=== PATIENT | female | born 1970 | race Caucasian/White ===

== ENCOUNTER 2019-11-02 07:47 | Outpatient (CLI) | payer OTHER, SELFPAY ==
--- NOTE | 2019-11-02 07:56 | MM_ITS ---
WS: [id number] BILATERAL SCREENING DIGITAL MAMMOGRAM WITH CAD HISTORY: SCREENING COMPARISON: 10/29/2018, 08/08/2017, 07/06/2016, 06/09/2015 and 12/14/2014 Bilateral CC and MLO views submitted. Computer aided detection analyzed. Breast composition: There are scattered areas of fibroglandular density. No suspicious masses, microc alcifications or architectural distortion. Long-term stability of calcifications in the central LEFT breast. There is an asymmetry in the anterior LEFT breast associated with the calcifications which valdez s been present over multiple prior examinations and stable. MM/[place] [id number] IMPRESSION: BI-RADS: 2-Benign FOLLOW UP: 1 Year Follow-up
== END 2019-11-02 07:48 | disposition home or self-care (01) ==
LOC: RADSHAW 07:51
PROVIDERS: PCP Nurse Practitioner Family; Visit Provider Obstetrics & Gynecology
DX: Z12.31 Encounter for screening mammogram for malignant neoplasm of breast (principal)
CPT/HCPCS: 77067

== ENCOUNTER 2020-09-06 16:37 | Outpatient (CLI) | payer OTHER, SELFPAY ==
--- NOTE | 2020-09-06 16:47 | MR_ITS ---
WS: [id number] MRI LEFT KNEE NONCONTRAST TECHNIQUE: Axial PD, coronal PD fat sat, coronal PD, sagittal PD, and sagittal PD fat-sat images obta ined. CLINICAL INFORMATION: LEFT KNEE PAIN COMPARISON: None. FINDINGS: Distal quadriceps and patella tendons are intact. Hypertrophic patella. Normal ACL and PCL. Hoffa's f at pad is normal in appearance. Chronic thinning of the medial and lateral meniscus. Blunting of the posterior horn medial meniscus with a small horizontal tear extending to the periphery. Mild lateral extrusion of the medial meniscus. Moderate degenerative narrowing involving the medial and lateral joint compartments with chondromalac ia. Advanced chondromalacia patella. Small amount of subchondral edema. Medial and lateral patellar r etinaculum are intact. Normal popliteal fossa. Small amount of edema and fluid along the superficial and deep fibers of the MCL. MCL appears grossly intact. Findings compatible with grade 1-2 injury. No rmal lateral collateral ligament. MR/MR knee LT wo con* [id number] IMPRESSION: 1. Normal ACL and PCL. 2. Grade IV chondromalacia patella with a small amount of subchondral edema. 3. Advanced degenerative narrowing medial and lateral joint compartments with grade 3-4 chondromalacia. 4. Grade 1-2 injury medial collateral ligament which appears grossly intact. 5. Small horizontal tear involving the posterior horn medial meniscus extendin g to the periphery. Outbridge grading: grade IV: full-thickness cartilage loss with underlying bone reactive changes
== END 2020-09-06 16:38 | disposition home or self-care (01) ==
LOC: RADSHAW 16:39
PROVIDERS: PCP Nurse Practitioner Family; Visit Provider Nurse Practitioner Family
DX: M25.562 Pain in left knee (principal); S83.242A Other tear of medial meniscus, current injury, left knee, initial encounter; X58.XXXA Exposure to other specified factors, initial encounter
CPT/HCPCS: 73721

== ENCOUNTER → 2020-09-19 10:07 | Outpatient (BNVA) | payer OTHER, SELFPAY | PROVIDERS: PCP Nurse Practitioner Family; Visit Provider Specialist | DX: M17.12 Unilateral primary osteoarthritis, left knee (principal); S83.249A Other tear of medial meniscus, current injury, unspecified knee, initial encounter; X58.XXXA Exposure to other specified factors, initial encounter | CPT/HCPCS: 73560; 73565 ==

== ENCOUNTER 2020-09-28 14:30 | Outpatient (RCR) | payer OTHER, SELFPAY | END 2020-10-05 23:59 | disposition home or self-care (01) | LOC: SPT 14:30 | PROVIDERS: PCP Nurse Practitioner Family; Referring Provider Specialist; Visit Provider Specialist | DX: M17.12 Unilateral primary osteoarthritis, left knee (principal) | CPT/HCPCS: 97110; 97161 ==

== ENCOUNTER 2020-10-06 06:00 | Outpatient (RCR) | payer OTHER, SELFPAY | END 2020-11-05 23:59 | disposition home or self-care (01) | LOC: SPT 06:00 | PROVIDERS: PCP Nurse Practitioner Family; Referring Provider Specialist; Visit Provider Specialist | DX: S46.911A Strain of unspecified muscle, fascia and tendon at shoulder and upper arm level, right arm, initial encounter (principal); X58.XXXA Exposure to other specified factors, initial encounter | CPT/HCPCS: 97110 ==

== ENCOUNTER 2020-11-06 06:00 | Outpatient (RCR) | payer OTHER, SELFPAY | END 2020-12-06 23:59 | disposition home or self-care (01) | LOC: SPT 06:00 | PROVIDERS: PCP Nurse Practitioner Family; Referring Provider Specialist; Visit Provider Specialist | DX: M17.12 Unilateral primary osteoarthritis, left knee (principal) | CPT/HCPCS: 97110; G0283 ==

== ENCOUNTER 2020-11-07 14:43 | Outpatient (CLI) | payer OTHER, SELFPAY ==
--- NOTE | 2020-11-07 14:47 | MM_ITS ---
WS: [id number] BILATERAL SCREENING DIGITAL MAMMOGRAM WITH CAD HISTORY: SCREENING COMPARISON: 11/02/2019, 10/29/2018, 12/14/2014, 06/09/2015 and 06/29/2016 Bilateral CC and MLO views submitted. Computer aided detection analyzed. Breast composition: There are scattered areas of fibroglandular density. No suspicious masses, microc alcifications or architectural distortion. There are scattered nodules and calcifications which remai n stable over multiple prior examinations. No new or increasing calcifications. MM/[place] [id number] IMPRESSION: BI-RADS: 2-Benign FOLLOW UP: 1 Year Follow-up
== END 2020-11-07 14:44 | disposition home or self-care (01) ==
LOC: RADSHAW 14:46
PROVIDERS: PCP Nurse Practitioner Family; Visit Provider Nurse Practitioner Family
DX: Z12.31 Encounter for screening mammogram for malignant neoplasm of breast (principal)
CPT/HCPCS: 77067

== ENCOUNTER → 2020-11-30 09:20 | Outpatient (BNVA) | payer OTHER, SELFPAY | PROVIDERS: PCP Nurse Practitioner Family; Visit Provider Specialist | DX: M17.12 Unilateral primary osteoarthritis, left knee (principal) | CPT/HCPCS: 80500; 87070; 87205; 89051 ==

== ENCOUNTER 2020-12-05 09:49 | Outpatient (CLI) | payer OTHER, SELFPAY ==
[2020-12-05 10:42] LABS: Alanine Aminotransferase 18 U/L (0-33); Albumin Level 4.2 g/dL (3.5-5.2); Alkaline Phosphatase 87 IU/L (35-105); Anion Gap 13.8 (5-19); Aspartate Amino Transferase 16 U/L (0-32); Blood Urea Nitrogen 12 mg/dL (6-20); C Reactive Protein 20.9 mg/L (0.0-4.9); Calcium 9.4 mg/dL (8.5-10.5); Carbon Dioxide 27 mmol/L (22-29); Chloride 98 mmol/L (98-107); Globulin 3.4 g/dL (1.3-4.6); Glomerular Filtration Rate 105.4 mL/min (90-130); Glucose 112 mg/dL (65-115); Osmolality Calculated 281 mOsm/kg (285-295); Potassium 3.8 mmol/L (3.5-5.1); Sodium 135 mmol/L (136-145); Total Bilirubin 0.5 mg/dL (0.15-1.2); Total Protein 7.6 g/dL (6.6-8.7)
[2020-12-05 11:24] LABS: Erythrocyte Sedimentation Rate 28 mm/hr (0-15)
[2020-12-06 11:32] LABS: COMPLEMENT COMPONENT C3C 196 mg/dL (83-193); COMPLEMENT COMPONENT C4C 45 mg/dL (15-57)
[2020-12-07 09:52] LABS: Cyclic Citrullinated Peptide <16 UNITS
[2020-12-07 14:26] LABS: CENTROMERE B ANTIBODY <1.0 NEG AI (<1.0 NEG); JO-1 ANTIBODY <1.0 NEG AI (<1.0 NEG); RNP ANTIBODY <1.0 NEG AI (<1.0 NEG); SCL-70 ANTIBODY <1.0 NEG AI (<1.0 NEG); SJOGREN'S ANTIBODY (SS-A) <1.0 NEG AI (<1.0 NEG); SM ANTIBODY <1.0 NEG AI (<1.0 NEG); SS-B <1.0 NEG AI (<1.0 NEG)
[2020-12-07 14:42] LABS: COMPLEMENT, TOTAL (CH50) >60 U/mL (31-60)
[2020-12-07 15:41] LABS: THYROID PEROXIDASE ANTIBODIES 2 IU/mL (<9)
[2020-12-08 16:42] LABS: ANA SCREEN, IFA NEGATIVE (NEGATIVE)
[2020-12-09 12:22] LABS: DNA AB (DS) CRITHIDIA,IFA NEGATIVE (NEGATIVE)
== END 2020-12-05 09:50 | disposition home or self-care (01) ==
PROVIDERS: PCP Nurse Practitioner Family; Visit Provider Specialist
DX: M17.12 Unilateral primary osteoarthritis, left knee (principal)
CPT/HCPCS: 36415; 80053; 85651; 86140; 86160; 86162; 86235; 86255; 86376; 86431

== ENCOUNTER 2021-01-09 07:22 | Emergency (ER) | payer OTHER, SELFPAY ==
[2021-01-09 07:32] VITALS: BP 137/98; PULSE 89; RESP 19; TEMP 37.1; O2SAT 96; BMI 35.0
--- NOTE | 2021-01-09 07:40 | XR_ITS ---
WS: [id number] XR chest 1V portable [id number] REASON FOR EXAM: dyspnea/cough FINDINGS: The chest is unchanged compared to 12/01/2014. The heart and mediastinum are within normal limits. Calcified granulomatous disease bilaterally. Chronic interstitial changes, fibrotic scarring, in the lung bases, most notably on the right. XR/XR chest 1V portable [id number] IMPRESSION: No acute chest abnormality identified.
--- NOTE | 2021-01-09 07:41 | ED_ITS ---
HPI - COVID General: Chief Complaint: COVID symptoms Stated Complaint: covid sx: loss of taste/smell; SOB Time Seen by Provider: 01/09/21 07:24 Triage information: No fever, cough or shortness of breath . Exposure to COVID + person last 14 days History of Present Illness: HPI Narrative: 80-year-old female presents emergency room complaining of anosmia low-grade fever. 53 1 week ago. Patient has a history of hypertension and obesity, she is also on postmenopausal hormone replacement therapy. She has had a few loose stools no nancy diarrhea. She has not previously been vaccinated or known to have Covid. MD complaint: has COVID symptoms Prior covid testing: no COVID 19 common symptoms: positive fever(s), chills, cough, non-productive cough, dyspnea, fatigue, body aches, loss of sense of smell and/or taste, throat pain, nasal congestion, nausea, vomiting and diarrhea; negative productive cough, headache(s) or chest tightness COVID 19 other sytmptoms: negative chest pain or requiring oxygen Onset (ago): day(s) (7) Severity: mild Pertinent comorbid conditions: hypertension and obesity Treatment prior to arrival: none COVID Results: No Data to Display Review of Systems Const: Reports: fever(s), chills, body aches and fatigue ENMT: Reports: throat pain and nasal congestion Card: Denies: chest pain, edema, dyspnea on exertion or orthopnea Resp: Reports: dyspnea and non-productive cough; Denies: productive cough GI: Reports: nausea, vomiting and diarrhea : Denies: flank pain, difficulty voiding, dysuria, urinary frequency or urinary urgency Skin/Breast: Denies: rash or pruritus Neuro: Denies: headache(s) PFSH ED PFSH: Family History Father Hypertension Heart disease Hyperlipidemia Diabetes Grandmother Heart disease paternal Breast cancer maternal Mother Cerebral aneurysm Grandfather Brain cancer paternal Denies family history of Colon cancer Ovarian cancer Clotting disorder Anesthesia complication Bleeding disorder Uterine cancer Thyroid condition Stroke Social History Smoking and tobacco status: never smoked Alcohol intake: current Alcohol intake frequency: holidays/special occasions only Alcohol type: wine Physical Exam Const: COMMON NORMALS: no acute distress GENERAL APPEARANCE: cooperative and comfortable ORIENTATION/CONSCIOUSNESS: Yes awake, Yes oriented to person, Yes oriented to place and Yes oriented to time HENMT: COMMON NORMALS: normocephalic, atraumatic and hearing grossly normal bilaterally HEAD & SCALP: normocephalic and atraumatic Neck/C-Spine: COMMON NORMALS: no JVD Resp: COMMON NORMALS: normal respiratory effort, No retractions, No use of accessory muscles and clear to auscultation bilaterally AUSCULTATION: clear to auscultation bilaterally Cardio: COMMON NORMALS: no JVD, regular rate, regular rhythm and No murmurs present (Cardio) RATE: regular rate RHYTHM: regular rhythm GI: COMMON NORMALS: Soft to palpation and No hepatosplenomegaly present AUSCULTATION: Yes normoactive bowel sounds PALPATION: Yes Soft to palpation, No Tenderness to palpation present (GI), No Guarding due to palpation present (GI) and Yes No hepatosplenomegaly present Extremity: COMMON NORMALS: normal to inspection, capillary refill normal, no clubbing, cyanosis or edema, no calf tenderness and no pedal edema Neuro: SENSORIUM/ORIENTATION: Yes oriented to person, Yes oriented to place and Yes oriented to time Skin: COMMON NORMALS: no rashes or lesions noted GENERAL SKIN EXAM: no rashes or lesions noted Course Vital Signs: Vital signs: Vital Signs Temperature 98.7 F 01/09/21 07:32 Pulse Rate 87 01/09/21 08:02 Respiratory Rate 16 01/09/21 08:02 Blood Pressure 128/90 01/09/21 08:02 Pulse Oximetry 96 01/09/21 08:02 MDM - COVID MDM Narrative: Medical decision making narrative: Patient has mild symptoms. I do suspect she has Covid. Discussed monoclonal antibody she does wish to proceed with this if she is positive. She would meet criteria in terms of timeframe and medical indications. We will go ahead and discharge her home she is not requiring oxygen at this time recommend self quarantine. Concerned about conjugated estrogens. Covid patients have an increased risk for thrombosis. If still taken the conjugated estrogens would anticipate an even higher potential for that if she is positive for Covid. I would recommend to her that she hold conjugated estrogens until her primary care doctor advised that she can return restart them if she is positive for Covid. COVID Results: No Data to Display Discharge Plan Discharge Patient Disposition: Home Clinical Impression: Clinical diagnosis of COVID-19 Condition: Stable Prescriptions: No Action lisinopril-hydrochlorothiazide 10-12.5 mg tablet 1 tab PO DAILY RF: 0 bupropion HCl [Wellbutrin XL] 150 mg tablet extended release 24 hr 150 mg PO QAM RF: 0 albuterol sulfate [Ventolin HFA] 90 mcg/actuation HFA aerosol inhaler 2 puff INHALATION Q6H PRN (Reason: shortness of breath or wheezing) Qty: 18 RF: 0 calcium carbonate-vitamin D2 600 mg calcium- 200 unit tablet PO DAILY RF: 0 multivitamin Tablet 1 tab PO DAILY RF: 0 docusate sodium [Colace] 100 mg capsule 100 mg PO DAILY RF: 0 Premarin 0.9 mg tablet 0.9 mg PO DAILY 90 Days Qty: 90 RF: 3 meloxicam [Mobic] 15 mg tablet 15 mg PO DAILY Qty: 30 RF: 0 Discharge Orders: Discharge ED (Routine); Ordered 01/09/21 Ordered By: Master Esteban Referrals: Susanna Callaway APN [Primary Care Provider] - Discharge Diet: Usual diet Discharge Activity: Resume usual activity Patient Instructions: Opioid Safety Activity Restrictions/Additional Instructions: Suspect you have Covid. We will contact you with results when they are available. Recommend that you stop the conjugated estrogens at this time follow-up with your primary care doctor if the results are positive to discuss when to resume them. Also recommend self quarantine until results are back. If the results are positive would recommend monoclonal antibody treatment which can be arranged as an outpatient. 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
[2021-01-09 08:02] VITALS: BP 128/90; PULSE 87; RESP 16; O2SAT 96
[2021-01-09 08:32] LABS: SARS Covid-2 Antigen Negative (Negative)
[2021-01-10 20:06] LABS: Coronavirus Test Green County Detected
== END 2021-01-09 08:20 | disposition home or self-care (01) ==
PROVIDERS: Emergency Provider Family Medicine; PCP Nurse Practitioner Family
DX: U07.1 COVID-19 (principal)
CPT/HCPCS: 71045; 87426; 87635; 99283

== ENCOUNTER 2021-01-11 13:23 | Outpatient (CLI) | payer OTHER, SELFPAY ==
[2021-01-11 14:03] VITALS: BMI 34.3
[2021-01-11 14:10] VITALS: BP 128/81; PULSE 81; RESP 18; TEMP 36.5; O2SAT 95
[2021-01-11 14:22] VITALS: BP 108/74; PULSE 71; RESP 18; O2SAT 97
[2021-01-11 15:13] VITALS: BP 108/76; PULSE 88; RESP 18; TEMP 36.9; O2SAT 97
== END 2021-01-11 13:24 | disposition home or self-care (01) ==
PROVIDERS: PCP Nurse Practitioner Family; Visit Provider Family Medicine
DX: U07.1 COVID-19 (principal)
CPT/HCPCS: 96365

== ENCOUNTER → 2021-02-01 08:31 | Outpatient (BNVA) | payer OTHER, SELFPAY | PROVIDERS: PCP Nurse Practitioner Family; Visit Provider Internal Medicine | DX: M25.562 Pain in left knee (principal); M25.462 Effusion, left knee; R79.82 Elevated C-reactive protein (CRP); Z11.59 Encounter for screening for other viral diseases; R93.7 Abnormal findings on diagnostic imaging of other parts of musculoskeletal system; Z79.899 Other long term (current) drug therapy | CPT/HCPCS: 99204 ==

== ENCOUNTER 2021-02-01 13:35 | Outpatient (CLI) | payer OTHER, SELFPAY ==
--- NOTE | 2021-02-01 14:01 | XR_ITS ---
WS: [id number] Exam: XR hand RT 2V [id number] Date/Time of Exam: 02/01/2021 2:03 PM Reason For Exam: M25.562 - Pain in left knee Findings: No fractures, soft tissue swelling, or unusual calcifications are noted. The hand shows normal bony alignment. There is no irregularity of the bony architecture. XR/XR hand RT 2V [id number] IMPRESSION: Normal right hand.
--- NOTE | 2021-02-01 14:01 | XR_ITS ---
WS: [id number] SACROILIAC JOINTS TECHNIQUE: AP and oblique imaging is submitted. HISTORY: L40.9 - Psoriasis, unspecified COMPARISON: None available. No significant sclerosis along either SI joint. Questionable minimal LEFT SI sclerosis. There is no w idening or erosions identified. No enthesopathy is identified. No soft tissue abnormality. XR/XR sacroiliac jts m 3V [id number] IMPRESSION: Very minimal sclerosis along the inferior LEFT SI joint. This is asymmetric to the RIGHT. No erosions or widening.
--- NOTE | 2021-02-01 14:01 | XR_ITS ---
WS: [id number] Exam: XR hand LT 2V [id number] Date/Time of Exam: 02/01/2021 2:03 PM Reason For Exam: M25.562 - Pain in left knee Findings: No fractures, soft tissue swelling, or unusual calcifications are noted. The hand shows normal bony alignment. There is no irregularity of the bony architecture. XR/XR hand LT 2V [id number] IMPRESSION: Normal left hand.
[2021-02-01 15:16] LABS: Add Urine Microscopic? NO; Charge for UA Resulting for Rev
[2021-02-01 15:25] LABS: Basophils # 0.1 10^3/uL (0.0-0.1); Basophils % 0.7 %; Eosinophils # 0.2 10^3/uL (0.0-0.8); Eosinophils % 2.4 %; Hematocrit 43.7 % (37.0-47.0); Hemoglobin 14.2 g/dL (11.5-15.3); Lymphocytes # 2.7 10^3/uL (0.8-4.8); Lymphocytes % 28.3 %; Mean Corpuscular HGB Conc 32.5 g/dL (30.0-36.0); Mean Corpuscular Hemoglobin 29.3 pg (28.0-34.0); Mean Corpuscular Volume 90.1 fl (81-99); Mean Platelet Volume 11.2 fL (7.4-10.4); Monocytes # 0.8 10^3/uL (0.2-0.9); Monocytes % 8.9 %; Neutrophils # 5.57 10^3/uL (1.8-7.7); Neutrophils % 59.3 %; Nucleated Red Blood Cells % 0 %; Platelet Count 326 10^3/cmm (130-400); Red Blood Count 4.85 10^6/uL (4.1-5.3); Red Cell Distribution Width 12.6 % (12.1-15.1); White Blood Count 9.4 10^3/uL (4.0-10.0)
[2021-02-01 16:09] LABS: Hepatitis B Core AB, Total Non-Reactive (Nonreactive); Hepatitis B Surface Antigen Non-Reactive (Nonreactive); Hepatitis C Virus Antibody Non-Reactive (Nonreactive)
[2021-02-01 16:11] LABS: 25 Hydroxy Vitamin D 30 ng/mL (30-100); C Reactive Protein 20.1 mg/L (0.0-4.9); Ferritin 116 ng/mL (15-150); Iron 60 ug/dL (37-145); Phosphorus 3.8 mg/dL (2.5-4.5); Thyroid Stimulating Hormone 0.99 uIU/mL (0.27-4.20); Uric Acid 6.4 mg/dL (2.4-5.7)
[2021-02-01 16:25] LABS: Bilirubin Urine Neg (Negative); Blood Urine Neg (Negative); Glucose Urine UA Norm (Normal); Ketones Urine Negative (Negative); Leukocyte Esterase Urine Negative (Negative); Nitrate Urine Negative (Negative); Protein Urine Neg (Negative); Specific Gravity, Urine 1.015 (1.005-1.030); Urine Appearance Clear (CLEAR); Urine Color Yellow (Yellow); Urobilinogen Urine Norm (Negative); pH Urine 7 (5-7)
[2021-02-01 16:27] LABS: Calcium 9.7 mg/dL (8.5-10.5)
[2021-02-01 17:16] LABS: Parathyroid Hormone 33.5 pg/mL (15-65)
[2021-02-02 14:48] LABS: Erythrocyte Sedimentation Rate 36 mm/hr (0-15)
== END 2021-02-01 13:36 | disposition home or self-care (01) ==
PROVIDERS: PCP Nurse Practitioner Family; Visit Provider Internal Medicine
DX: M25.562 Pain in left knee (principal); L40.9 Psoriasis, unspecified; Z79.899 Other long term (current) drug therapy; Z11.59 Encounter for screening for other viral diseases
CPT/HCPCS: 36415; 72202; 73120; 81003; 82306; 82310; 82728; 83540; 83735; 83970; 84100; 84439; 84443; 84550; 85025; 85651; 86140; 86704; 86803; 87340

== ENCOUNTER → 2021-02-13 09:29 | Outpatient (BNVA) | payer OTHER, SELFPAY | PROVIDERS: PCP Nurse Practitioner Family; Visit Provider Internal Medicine | DX: M23.204 Derangement of unspecified medial meniscus due to old tear or injury, left knee (principal); M25.462 Effusion, left knee; R79.82 Elevated C-reactive protein (CRP); M53.3 Sacrococcygeal disorders, not elsewhere classified; M70.60 Trochanteric bursitis, unspecified hip; Y93.9 Activity, unspecified; M45.0 Ankylosing spondylitis of multiple sites in spine | CPT/HCPCS: 86812; 99214 ==

== ENCOUNTER → 2021-02-22 11:21 | Outpatient (BNVA) | payer OTHER, SELFPAY | PROVIDERS: PCP Nurse Practitioner Family; Visit Provider Internal Medicine | DX: M17.12 Unilateral primary osteoarthritis, left knee (principal) | CPT/HCPCS: 96372; J1100 ==

== ENCOUNTER 2021-03-10 13:13 | Outpatient (CLI) | payer OTHER, SELFPAY ==
--- NOTE | 2021-03-10 13:19 | XR_ITS ---
WS: [id number] Lumbar spine, 3 views, 03/10/2021 Clinical Data: M53.3 - Sacrococcygeal disorders, not elsewhere classified Comparison: None. Findings: No compression fractures or subluxation is seen. No disc space narrowing is seen. The transverse proc esses and SI joints are normal. There is minimal osteoarthritic spurring of the lumbar vertebral bodies L2-L5. There are clips in the right upper quadrant from a cholecystectomy. XR/XR lumbar spine 2-3V* [id number] Impression: Minimal osteoarthritis L2-L5.
--- NOTE | 2021-03-10 13:19 | XR_ITS ---
WS: [id number] Lateral views of cervical spine in the flexion, extension and neutral positions. 03/10/2021 Clinical Data: M53.3 - Sacrococcygeal disorders, not elsewhere classified Comparison: Cervical spine, 04/13/2011. Findings: No compression fractures are seen. The disc heights are normal. On flexion and extension there is no limitation of motion or subluxation. There is no prevertebral soft tissue swelling. XR/XR cervical spine fl/ex [id number] Impression: Negative lateral cervical spine.
--- NOTE | 2021-03-10 13:19 | XR_ITS ---
WS: [id number] Thoracic spine, 3 views, 03/10/2021 Clinical Data: M53.3 - Sacrococcygeal disorders, not elsewhere classified Comparison: None. Findings: No compression fractures are seen. The disc heights are normal. There is moderate spurring of all the thoracic vertebral bodies. The paravertebral regions are normal . There are clips in the right upper quadrant from cholecystectomy. XR/XR thoracic spine 3V* [id number] Impression: Moderate osteoarthritis of the thoracic vertebral bodies.
[2021-03-11 08:22] LABS: PROTEIN, TOTAL 7.4 g/dL (6.1-8.1)
[2021-03-13 15:57] LABS: ALBUMIN 4.3 g/dL (3.8-4.8); ALPHA 1 GLOBULIN 0.4 g/dL (0.2-0.3); ALPHA 2 GLOBULIN 0.8 g/dL (0.5-0.9); BETA 1 GLOBULIN 0.5 g/dL (0.4-0.6); BETA 2 GLOBULIN 0.4 g/dL (0.2-0.5); GAMMA GLOBULIN 1.1 g/dL (0.8-1.7)
== END 2021-03-10 13:14 | disposition home or self-care (01) ==
LOC: RAD 13:17
PROVIDERS: PCP Nurse Practitioner Family; Visit Provider Internal Medicine
DX: M53.3 Sacrococcygeal disorders, not elsewhere classified (principal); M70.60 Trochanteric bursitis, unspecified hip; R76.8 Other specified abnormal immunological findings in serum; Z87.828 Personal history of other (healed) physical injury and trauma
CPT/HCPCS: 36415; 72040; 72072; 72100; 84155; 84165

== ENCOUNTER → 2021-06-12 15:43 | Outpatient (BNVA) | payer OTHER, SELFPAY | PROVIDERS: PCP Nurse Practitioner Family; Visit Provider Specialist | DX: M17.12 Unilateral primary osteoarthritis, left knee (principal); Z20.822 Contact with and (suspected) exposure to COVID-19 | CPT/HCPCS: 73560; 73565; 87635 ==

== ENCOUNTER 2021-06-15 11:01 | Day surgery (SDC) | payer OTHER, SELFPAY ==
[2021-06-14 10:42] VITALS: BMI 35.5
[2021-06-15] VITALS (10 sets, daily range): BP systolic 92–134; BP diastolic 53–88; PULSE 64–94; RESP 14–18; TEMP 36.3–36.7; O2SAT 94–98
[2021-06-15] MEDS: acetaminophen 1,000 MG/100 ML PIGGYBACK 400 MG IV (12:05)
[2021-06-15] MEDS: sodium chloride 0.9% 1,000 ML 30 ML IV (12:09)
[2021-06-15] MEDS: CELEcoxib 200 mg Capsule 400 MG PO (12:10)
--- NOTE | 2021-06-15 12:10 | P.HPUD_ITS ---
Surgery/Procedure H&P Update DATE OF PROCEDURE: June 15, 2021 DATE H&P PERFORMED: 06/12/21 H&P UPDATE INFORMATION: I have reviewed H&P completed within last 30 days, I have examined patient prior to procedure, No changes to prior documentation and H&P is in [facility] [place] on date indicated PREOP DIAGNOSIS: Left knee effusion with synovitis, osteoarthritis, and meniscal tear PLANNED PROCEDURE: Operation Date: 06/15/21 12:30 Proposed Procedures p Knee Arthroscopy 73937/88805I/s83.207A/M13.162(Left) - Angi Wong MD Related Problem List Diagnoses (1) Knee effusion, left: (2) Primary osteoarthritis of left knee: (3) Medial meniscus tear: Qualifiers: Tear current or old: old Meniscus tear of knee type: other type Laterality: left Qualified Code(s): M23.204 - Derangement of unspecified medial meniscus due to old tear or injury, left knee
[2021-06-15] MEDS: scopolamine 1.5 Patch 1 PATCH TRANSDERMA (12:25)
--- NOTE | 2021-06-15 12:32 | ANES.PREANE2 ---
Pre-Anesthetic Assessment Height/Weight: Height 1.63 m Weight 93.894 kg Temp Pulse Resp BP Pulse Ox 98.0 F 76 16 130/86 95 06/15/21 11:29 06/15/21 11:29 06/15/21 11:29 06/15/21 11:29 06/15/21 11:29 Preop Diagnosis: Left knee effusion with synovitis, osteoarthritis, and meniscal tear Operation Date: 06/15/21 12:30 Proposed Procedures p Knee Arthroscopy 28547/19692C/s83.207A/M13.162(Left) - Angi Wong MD Familial anesthetic complications: None Was Beta Anthony taken within 24 hours: N/A Was Clonidine taken within 24 hours: N/A Last intake: Intake Last Liquid Date 06/15/21 Last Liquid Time 06:30 Last Solid Date 06/14/21 Last Solid Time 21:00 Social No alcohol and No tobacco Exam alert, oriented x 3, clear to auscultation bilaterally and regular rate & rhythm Airway Submandibular: within normal limits Cervical ROM: within normal limits Mallampati: Class II Dentition: false CV/HEM Hypertension Metabolic Morbid Obesity Neuropsych Anxiety and Depression Anesthetic Plan ASA status: 2 Other: h/o PONV--TIVA Risk of > 500 ml blood loss (7ml/kg in children): No Medications/Allergies Home Medications Medication Instructions Recorded Confirmed Last Taken Type albuterol sulfate 90 mcg/actuation 2 puff INHALATION Q6H PRN #18 gm 05/14/19 06/15/21 01/11/21 Rx aerosol inhaler (Ventolin HFA) bupropion HCl 150 mg 24 hr tablet, 150 mg PO QAM 05/14/19 06/15/21 06/15/21 06:30 History extended release (Wellbutrin XL) lisinopril 10 1 tab PO DAILY 05/14/19 06/15/21 06/14/21 08:00 History mg-hydrochlorothiazide 12.5 mg tablet calcium carb-ergocalciferol (vit 1 tab PO DAILY tab 03/08/20 06/15/21 06/14/21 History D2) 600 mg calcium-200 unit tablet docusate sodium 100 mg capsule 100 mg PO DAILY 03/08/20 06/15/21 06/14/21 History (Colace) multivitamin 1 tab PO DAILY 03/08/20 06/15/21 06/14/21 History diclofenac sodium 1 % topical gel 4 g TOPICAL QID #100 g 02/01/21 06/15/21 06/13/21 Rx (Voltaren Arthritis Pain) thiamine HCl (vitamin B1) 100 mg 50 mg PO DAILY #30 tab 03/09/21 06/15/21 06/14/21 Rx tablet conjugated estrogens 0.9 mg tablet 0.9 mg PO DAILY 90 Days #90 tab 03/14/21 06/15/21 06/14/21 20:00 Rx (Premarin) Allergies Allergy/AdvReac Type Severity Reaction Status Date / Time No Known Allergies Allergy Verified 06/14/21 10:05 Current Medications Generic Name Dose Route Start Last Admin Trade Name Freq PRN Reason Stop Dose Admin Sodium Chloride 1,000 mls @ 30 mls/hr 06/15/21 11:30 06/15/21 12:09 Sodium Chloride 0.9% IV 06/16/21 11:29 30 mls/hr .Q24H NEVAEH Administration PFSH Anesthesia Medical History Vasomotor symptoms due to menopause patient status post total abdominal hysterectomy with bilateral salpingo-oophorectomy Surgical History H/O arthroscopy 09/04/2018- right knee, Dr. Velázquez at [facility] H/O section 2003 H/O dilation and curettage 03/07/2016- Dr. Watson at [facility] [place] H/O laparoscopy 1991- endometriosis H/O lumpectomy 01/31/2006- Performed by Dr. Garcia at [facility] [place] in [place], [place], Benign findings. H/O lymph node excision 1998 H/O oral surgery 06/2017 H/O tubal ligation 2003 H/O wrist surgery 2003- right tendinitis H/O: hysterectomy 03/28/2016- Total abdominal hysterectomy with bilateral salpingo-oophorectomy. Performed per Dr. Watson [place], [place] S/P cholecystectomy 2000 S/P hemorrhoidectomy 2004 Family History Father Hypertension Heart disease Hyperlipidemia Diabetes Grandmother Heart disease paternal Breast cancer maternal Mother Cerebral aneurysm Grandfather Brain cancer paternal Denies family history of Colon cancer Ovarian cancer Clotting disorder Anesthesia complication Bleeding disorder Uterine cancer Thyroid condition Stroke Social History Smoking and tobacco status: never smoked Alcohol intake: current Alcohol intake frequency: holidays/special occasions only Alcohol type: wine History of recent travel: No Data Anesthesia Cardiac Studies: No Data to Display
[2021-06-15] MEDS: morphine 4 mg/mL SDV 1 mL 8 MG XX (13:08)
--- NOTE | 2021-06-15 14:17 | SUR.PHASEI ---
left pedal pulse strong, toes of left foot warm and pink.
--- NOTE | 2021-06-15 14:36 | P.OP_ITS ---
Operative Report Date of procedure: June 15, 2021 Pre-op diagnosis: Left knee effusion with synovitis, osteoarthritis, and meniscal tear Post-op diagnosis: Left knee effusion with synovitis, osteoarthritis, and meniscal tear Procedure done: Left arthroscopic knee surgery with partial medial and lateral meniscectomies, chondroplasty of the patella as well as the medial femoral condyle and lateral tibial plateau, and synovial biopsy. Specimens removed/disposition: Synovium sent for pathologic evaluation Surgeon: Angi Wong Pipe Line Repairer: [facility] operating room technicians Anesthesia: General (per LMA, ASA 2) Estimated blood loss (mL): 5 Tourniquet time (min): 51 (At 250 mmHg) IV fluids (mL): 700 Urine output (mL): 0 (No Ellis) Complications: None Findings: Significant degenerative osteoarthritis with large medial meniscal tear and synovitis. Condition: stable Disposition: PACU (Then return to same-day surgery for discharge to home) Brief History: This 51-year-old woman presented with significant complaints of severe ongoing left knee pain. MRI demonstrated a small medial meniscal tear, but the patient was presenting with effusions repetitively. She also had degenerative osteoarthritic change on her radiologic evaluation. She has been seen by rheumatology. Plans were for an arthroscopic debridement with synovial biopsy to evaluate for inflammatory arthritis. Procedure: Patient was brought to the operating theater and after undergoing adequate ge neral anesthesia per LMA, ASA2, the patient's left lower extremity was prepped and draped in usual fashion utilizing DuraPrep. A tourniquet was placed high on the leg prior to prepping and draping. The tourniquet was elevated prior to commencement of the surgical procedure to 250 mmHg. Total tourniquet time was 51 minutes. Elevation followed prepping and exsanguination. Prior to commencement of the surgical procedure, a surgical pause was performed. At the time of the surgical pause, we identified the site and side of surgery. We also confirmed the patient's identity and appropriate and timely administration of preoperative antibiotics. Preoperative surgical markings were also visualized at this time. Standard arthroscopic portals were utilized including superolateral, inferomedia l, and inferolateral portals. The examination commenced in the suprapatellar pouch area where the patient was noted to have chondromalacia of a significant degree on the undersurface of the patella. The arthroscope was then passed in the medial compartment where there was noted to be apparent chondromalacia of the medial femoral condyle and medial tibial plateau medial meniscal tear at the junction of the anterior two thirds and posterior third of the meniscus. The arthroscope was then passed across the notch area where anterior cruciate ligament was visualized and found to be intact. The scope was passed into the lateral compartment with the knee in a [id number] position. Lateral meniscus was noted to have inner rim tearing, and there was significant chondromalacic change of the lateral tibial plateau. Lateral meniscus was addressed primarily with the intra-articular heat wand. Once the lateral meniscus had been thus prepared, it was palpated and found to be intact and not displaceable into the knee joint. A chondroplasty was also performed of the lateral tibial plateau. Scope was then returned to the medial compartment where there was noted to be a very large medial meniscal tear at the junction of the anterior two thirds and posterior third of the medial meniscus. This was addressed with a combination of a shaver, basket forceps, and the intra- articular heat wand. Following this, the meniscus was palpated and found to be not displaceable into the knee joint. Chondroplasty was performed of the medial femoral condyle and medial tibial plateau utilizing the intra-articular heat wand and the shaver. The arthroscope was then returned to the patellofemoral joint where a chondroplasty was performed of the undersurface of the patella. This chondroplasty involved use of the intra-articular shaver as well as the heat wand. Once the patella had been addressed, the scope was passed back through the knee compartments to evaluate for other abnormalities. Synovial biopsy was obtained and sent to pathology. Further evaluation demonstrated no other pathology, and attention was directed to closure. The knee was copiously irrigated and suctioned dry. Following this, each portal was closed with a simple suture followed by Dermabond and Opsite. Additionally, the knee was injected with 20 mL of half percent ropivacaine and 8 mg of morphine. Additional 10 mL of ropivacaine was placed about the portals. Sterile dressing was placed consisting of the Opsite followed by the Kulwant wrap. Patient was returned to Recovery Room in satisfactory condition where she will be discharged home to follow-up with me in the office as scheduled. There were no complications and specimen was as outlined above. Related Problem List Diagnoses (1) Primary osteoarthritis of left knee: (2) Medial meniscus tear: (3) Knee effusion, left:
== END 2021-06-15 15:55 | disposition home or self-care (01) ==
PROVIDERS: PCP Nurse Practitioner Family; Visit Provider Specialist
PROC: (CPT 29870; principal; 2021-06-15 12:30)
DX: M25.462 Effusion, left knee (principal); M17.12 Unilateral primary osteoarthritis, left knee; M23.204 Derangement of unspecified medial meniscus due to old tear or injury, left knee; I10 Essential (primary) hypertension; E66.01 Morbid (severe) obesity due to excess calories; Z68.35 Body mass index [BMI] 35.0-35.9, adult; F41.9 Anxiety disorder, unspecified; F32.9 Major depressive disorder, single episode, unspecified; Z82.49 Family history of ischemic heart disease and other diseases of the circulatory system
CPT/HCPCS: 29880; 88305; J0690; J1100; J1200; J2250; J2270; J2405; J2704; J2795; J3010; J7030

== ENCOUNTER 2021-07-05 06:00 | Outpatient (RCR) | payer OTHER, SELFPAY | END 2021-07-06 23:59 | disposition home or self-care (01) | LOC: SPT 06:00 | PROVIDERS: PCP Nurse Practitioner Family; Referring Provider Specialist; Visit Provider Specialist | DX: Z47.89 Encounter for other orthopedic aftercare (principal); M17.12 Unilateral primary osteoarthritis, left knee | CPT/HCPCS: 97161 ==

== ENCOUNTER 2021-07-07 06:00 | Outpatient (RCR) | payer OTHER, SELFPAY | END 2021-08-05 23:59 | disposition home or self-care (01) | LOC: SPT 06:00 | PROVIDERS: PCP Nurse Practitioner Family; Referring Provider Specialist; Visit Provider Specialist | DX: Z47.89 Encounter for other orthopedic aftercare (principal) | CPT/HCPCS: 97032; 97110 ==

== ENCOUNTER 2021-08-06 06:00 | Outpatient (RCR) | payer OTHER, SELFPAY | END 2021-08-29 23:59 | disposition home or self-care (01) | LOC: SPT 06:00 | PROVIDERS: PCP Nurse Practitioner Family; Referring Provider Specialist; Visit Provider Specialist | DX: Z47.89 Encounter for other orthopedic aftercare (principal); M17.12 Unilateral primary osteoarthritis, left knee | CPT/HCPCS: 97032; 97110 ==

== ENCOUNTER → 2021-12-27 14:53 | Outpatient (BNVA) | payer OTHER, SELFPAY | PROVIDERS: PCP Nurse Practitioner Family; Visit Provider Specialist | DX: M17.12 Unilateral primary osteoarthritis, left knee (principal) | CPT/HCPCS: 73560; 73565 ==

== ENCOUNTER 2022-01-03 09:32 | Outpatient (CLI) | payer OTHER, SELFPAY ==
--- NOTE | 2022-01-03 07:00 | CT_ITS ---
WS: [id number] CT LEFT KNEE, [facility] PROTOCOL HISTORY: M25.569 - Pain in unspecified knee, preop. Technique: All CT scans at [facility] use at least one of these dose optimization techniques: automated exposure control; mA and/or kV adjustment per patient size (includes targeted exams where dose is matched to clinical indication); or iterative reconstruction. DLP: 963.40 mGy.cm COMPARISON: No similar studies. Axial imaging performed through the LEFT hip, knee and ankle. Normal appearance of the LEFT hip joint. No significant osteoarthritis. No destructive bone lesion. M oderate narrowing of the LEFT knee, medial compartment greater than the lateral compartment with near bone upon bone. Small marginal osteophytes and osteophytes along the joint line. Small joint effusio n. Normal tibiotalar alignment. CT/CT knee LT wo con* [id number] IMPRESSION: LEFT lower extremity CT imaging, preop for [facility] protocol.
== END 2022-01-03 09:33 | disposition home or self-care (01) ==
PROVIDERS: PCP Nurse Practitioner Family; Visit Provider Specialist
DX: M25.562 Pain in left knee (principal)
CPT/HCPCS: 73700

== ENCOUNTER 2022-01-16 11:42 | Observation (INO) | payer OTHER, SELFPAY ==
[2022-01-09 09:43] VITALS: BMI 36.8
[2022-01-09 10:07] LABS: Basophils # 0.1 10^3/uL (0.0-0.1); Basophils % 0.7 %; Eosinophils # 0.3 10^3/uL (0.0-0.8); Eosinophils % 3.6 %; Hematocrit 41.4 % (37.0-47.0); Hemoglobin 13.4 g/dL (11.5-15.3); Lymphocytes # 2.3 10^3/uL (0.8-4.8); Lymphocytes % 31.3 %; Mean Corpuscular HGB Conc 32.4 g/dL (30.0-36.0); Mean Corpuscular Hemoglobin 28.8 pg (28.0-34.0); Mean Corpuscular Volume 88.8 fl (81-99); Mean Platelet Volume 11.4 fL (7.4-10.4); Monocytes # 0.5 10^3/uL (0.2-0.9); Neutrophils # 4.17 10^3/uL (1.8-7.7); Neutrophils % 56.9 %; Nucleated Red Blood Cells % 0 %; Platelet Count 275 10^3/cmm (130-400); Red Blood Count 4.66 10^6/uL (4.1-5.3); Red Cell Distribution Width 12.9 % (12.1-15.1); White Blood Count 7.3 10^3/uL (4.0-10.0)
[2022-01-09 10:29] LABS: Add Urine Microscopic? NO; Charge for UA Resulting for Rev
[2022-01-09 10:31] LABS: Alanine Aminotransferase 30 U/L (0-33); Albumin Level 4.3 g/dL (3.5-5.2); Alkaline Phosphatase 87 U/L (35-105); Anion Gap 14.7 (5-19); Aspartate Amino Transferase 24 U/L (0-32); Blood Urea Nitrogen 11 mg/dL (6-20); Calcium 9.5 mg/dL (8.5-10.5); Carbon Dioxide 28 mmol/L (22-29); Chloride 98 mmol/L (98-107); Glomerular Filtration Rate 87.9 mL/min (90-130); Glucose 155 mg/dL (65-115); Osmolality Calculated 287 mOsm/kg (285-295); Potassium 3.7 mmol/L (3.5-5.1); Sodium 137 mmol/L (136-145); Total Bilirubin 0.3 mg/dL (0.15-1.2); Total Protein 7.3 g/dL (6.6-8.7)
[2022-01-09 10:50] LABS: Bilirubin Urine Neg (Negative); Blood Urine Neg (Negative); Glucose Urine UA Norm (Normal); Ketones Urine Negative (Negative); Leukocyte Esterase Urine Negative (Negative); Nitrate Urine Negative (Negative); Protein Urine Neg (Negative); Specific Gravity, Urine 1.005 (1.005-1.030); Urine Appearance Clear (CLEAR); Urine Color Yellow (Yellow); Urobilinogen Urine Norm (Negative); pH Urine 6.5 (5-7)
--- NOTE | 2022-01-09 11:04 | ANES.PREANE2 ---
Pre-Anesthetic Assessment Height/Weight: Height 1.63 m Weight 97.522 kg Preop Diagnosis: Osteoarthritis left knee Operation Date: 01/16/22 07:00 Proposed Procedures ben Silvestre LEFT TOTAL KNEE ARTHROPLASTY 19105,M17.10(Left) - Angi Wong MD Familial anesthetic complications: PONV Was Beta Anthony taken within 24 hours: N/A Was Clonidine taken within 24 hours: N/A Social No alcohol and No tobacco Exam alert, oriented x 3, clear to auscultation bilaterally and regular rate & rhythm Airway Submandibular: within normal limits Cervical ROM: within normal limits Mallampati: Class II Dentition: false CV/HEM Hypertension Musc/skel Osteoarthritis/DJD and Rheumatoid Arthritis Neuropsych Anxiety and Depression Anesthetic Plan ASA status: 2 Anesthesia: Regional (specify below) (SAB with adductor blk) Medications/Allergies Home Medications Medication Instructions Recorded Confirmed Last Taken Type albuterol sulfate 90 mcg/actuation 2 puff inhalation Q6H PRN 05/14/19 01/09/22 01/11/21 Rx aerosol inhaler (Ventolin HFA) shortness of breath or wheezing #18 grams bupropion HCl 150 mg 24 hr tablet, 150 mg PO QAM 05/14/19 01/09/22 06/15/21 06:30 History extended release (Wellbutrin XL) lisinopril 10 1 tab PO DAILY 05/14/19 01/09/22 06/14/21 08:00 History mg-hydrochlorothiazide 12.5 mg tablet calcium carb-ergocalciferol (vit 1 tab PO DAILY 03/08/20 01/09/22 06/14/21 History D2) 600 mg calcium-200 unit tablet docusate sodium 100 mg capsule 100 mg PO DAILY 03/08/20 01/09/22 06/14/21 History (Colace) multivitamin 1 tab PO DAILY 03/08/20 01/09/22 06/14/21 History diclofenac sodium 1 % topical gel 4 g topical QID #100 grams 02/01/21 01/09/22 06/13/21 Rx (Voltaren Arthritis Pain) conjugated estrogens 0.9 mg tablet 0.9 mg PO DAILY 90 days #90 tabs 03/14/21 01/09/22 06/14/21 20:00 Rx (Premarin) ibuprofen 800 mg tablet (IBU) 800 mg PO TID PRN pain #90 tabs 10/30/21 01/09/22 Unknown Rx Allergies Allergy/AdvReac Type Severity Reaction Status Date / Time No Known Allergies Allergy Verified 12/27/21 15:05 [facility] Anesthesia Medical History Knee effusion, left Vasomotor symptoms due to menopause patient status post total abdominal hysterectomy with bilateral salpingo-oophorectomy Surgical History H/O arthroscopy 09/04/2018- right knee, Dr. Velázquez at [facility] H/O section 2003 H/O dilation and curettage 03/07/2016- Dr. Watson at [facility] H/O laparoscopy 1991- endometriosis H/O lumpectomy 01/31/2006- Performed by Dr. Garcia at [facility] in [place], [place], Benign findings. H/O lymph node excision 1998 H/O oral surgery 06/2017 H/O tubal ligation 2003 H/O wrist surgery 2003- right tendinitis H/O: hysterectomy 03/28/2016- Total abdominal hysterectomy with bilateral salpingo-oophorectomy. Performed per Dr. Watson [place], [place] S/P cholecystectomy 2000 S/P hemorrhoidectomy 2004 Family History Father Hypertension Heart disease Hyperlipidemia Diabetes Grandmother Heart disease paternal Breast cancer maternal Mother Cerebral aneurysm Grandfather Brain cancer paternal Denies family history of Colon cancer Ovarian cancer Clotting disorder Anesthesia complication Bleeding disorder Uterine cancer Thyroid condition Stroke Social History Smoking and tobacco status: never smoked Alcohol intake: current Alcohol intake frequency: holidays/special occasions only Alcohol type: wine History of recent travel: No Data Anesthesia : 01/09/22 09:45 01/09/22 09:45 Short CBC 01/09/22 Range/Units 09:45 WBC 7.3 (4.0-10.0) 10^3/uL Hgb 13.4 (11.5-15.3) g/dL Hct 41.4 (37.0-47.0) % MCV 88.8 (81-99) fl Plt Count 275 (130-400) 10^3/cmm Neut % (Auto) 56.9 % Neut # (Auto) 4.17 (1.8-7.7) 10^3/uL BMP 01/09/22 09:45 Sodium 137 Potassium 3.7 Chloride 98 Carbon Dioxide 28 BUN 11 Creatinine 0.7 Glucose 155 H Calcium 9.5 Liver Function 01/09/22 Range/Units 09:45 Total Bilirubin 0.3 (0.15-1.2) mg/dL AST 24 (0-32) U/L ALT 30 (0-33) U/L Alkaline Phosphatase 87 (35-105) U/L Albumin 4.3 (3.5-5.2) g/dL Urine 01/09/22 Range/Units 10:07 Urine Color Yellow (Yellow) Urine Appearance Clear (CLEAR) Urine pH 6.5 (5-7) Ur Specific [place] 1.005 (1.005-1.030) Urine Protein Neg (Negative) Urine Glucose (UA) Norm (Normal) Urine Ketones Negative (Negative) Urine Nitrate Negative (Negative) Urine Bilirubin Neg (Negative) Ur Leukocyte Esterase Negative (Negative) Cardiac Studies: No Data to Display
[2022-01-16] VITALS (18 sets, daily range): BP systolic 107–136; BP diastolic 70–91; PULSE 65–78; RESP 16–22; TEMP 36.1–36.6; O2SAT 91–99; BMI 36.8
[2022-01-16] MEDS: CELEcoxib 200 mg Capsule 400 MG PO (06:03)
[2022-01-16] MEDS: scopolamine 1.5 Patch 1 PATCH TRANSDERMA (06:03)
[2022-01-16] MEDS: acetaminophen 1,000 MG/100 ML PIGGYBACK 400 MG IV ×3 (06:07→20:51)
[2022-01-16] MEDS: sodium chloride 0.9% 1,000 ML 30 ML IV (06:09)
--- NOTE | 2022-01-16 06:39 | P.ANESUD_ITS ---
Pre-Anesthetic Update Pre-Anesthetic Assessment: Date of Surgery/Procedure: 01/16/22 Preop Leann gnosis: Osteoarthritis left knee Proposed Procedure: Operation Date: 01/16/22 07:00 Proposed Procedures p Konrad LEFT TOTAL KNEE ARTHROPLASTY 05093,M17.10(Left) - Angi Wong MD Any changes to Pre-Anesthetic Assessment?: No Last Intake: Intake Last Liquid Date 01/15/22 Last Liquid Time 22:00 Last Solid Date 01/15/22 Last Solid Time 22:00 Vitals: Temperature 97.1 F L 01/16/22 05:49 Temperature Source Temporal Artery S can 01/16/22 05:49 Pulse Rate 74 01/16/22 05:49 Pulse Rhythm 01/16/22 05:51 Pulse Strength 3+ Normal 01/16/22 05:51 Respiratory Rate 18 01/16/22 05:49 Blood Pressure 136/86 01/16/22 05:49 Blood Pressure Bernadette n 102 01/16/22 05:49 Pulse Oximetry 97 01/16/22 05:49 Oxygen Delivery Me thod 01/16/22 05:51 Exam: Pre-Anes Outpt Exam: alert, oriented x 3, clear to auscultation bilaterally and regular rate & rhythm Cardiac Studies: No Data to Display
--- NOTE | 2022-01-16 06:45 | P.HPUD_ITS ---
Surgery/Procedure H&P Update DATE OF PROCEDURE: January 16, 2022 DATE H&P PERFORMED: 12/27/21 H&P UPDATE INFORMATION: I have reviewed H&P completed within last 30 days, I have examined patient prior to procedure, No changes to prior documentation and H&P is in [facility] on date indicated PREOP DIAGNOSIS: Osteoarthritis left knee PLANNED PROCEDURE: Operation Date: 01/16/22 07:00 Proposed Procedures p Konrad LEFT TOTAL KNEE ARTHROPLASTY 81569,M17.10(Left) - Angi Wong MD Related Problem List Diagnoses (1) Primary osteoarthritis of left knee:
[2022-01-16] MEDS: ceFAZolin 2,000 MG in sodium chloride 0.9% (plus) 50 ML 100 MG IV ×3 (07:30→21:59)
[2022-01-16] MEDS: vancomycin 1,000 MG SDV 1000 MG XX (08:24)
[2022-01-16] MEDS: ceFAZolin 1,000 mg SDV 2000 MG IRRIGATION (08:24)
[2022-01-16] MEDS: tranexamic acid 1,000 mg/10mL SDV 1000 MG IV (09:49)
--- NOTE | 2022-01-16 10:25 | PM.OP ---
Operative Report Date of procedure: January 16, 2022 Pre-op diagnosis: Severe degenerative osteoarthritis left knee with slight flexion contracture Post-op diagnosis: Severe degenerative osteoarthritis left knee with slight flexion contracture Post-op findings: Degenerative osteoarthritis left knee with osteophytes Procedure done: Konrad assisted left total knee arthroplasty Implants: The Dharmesh total knee system with a size 4 triathlon beaded cruciate retaining femur left, a triathlon titanium tibial component size 4 beaded, a triathlon X3 tibial bearing CS insert size 4 X 10 mm and a beaded triathlon titanium asymmetric patella size 29 x 9 mm Specimens removed/disposition: Bone, disposed of Pathology: none sent Surgeon: Angi Wong Pig Handler: Tomas Qureshi Pig Handler: Surgeon printing bindery assistant was required for use of the Konrad, including positioning, facilitating surgical visualization, retracting, and input of Konrad experience. Anesthesia: MAC (With spinal, ASA 2) Estimated blood loss (mL): 50 Tourniquet time (min): 103 (At 250 mmHg) IV fluids (mL): 800 Urine output (mL): 300 Complications: None Findings: Severe degenerative osteoarthritis with large osteophytes, slight flexion contracture, and significant cartilage loss Condition: stable Disposition: PACU (Then to floor for postoperative rehabilitation and pain management) Brief History: This 52-year-old woman initially presented to my office with complaints of severe left knee pain. Conservative measures have included arthroscopic knee surgery and anti-inflammatory medication in addition to physical therapy. The patient continued to have significant limitations in her activities of daily living. She was unable to tolerate the pain level of her degenerative osteoarthritis. Further work-up and discussion led us to decide to perform left total knee arthroplasty. Preoperatively, discussion was undertaken with the patient that we would planned the Konrad assisted total knee arthroplasty. She was in agreement with this. Preoperatively, we also notified her there would be 2 surgeons were required for her surgical intervention to assist with Konrad positioning. Preoperative planning was accomplished and followed throughout the surgical procedure. In the office, questions were answered and consents were signed. Procedure: The patient was brought to the operating theater, and after undergoing adequate spinal anesthesia supplemented with adductor canal block and MAC, ASA 2, the left lower extremity was prepped with Dura-Prep and draped in usual fashion following placement of a tourniquet high on the leg. The leg was then draped free. Following prepping and draping, the leg was exsanguinated, and the tourniquet was elevated to 250 mmHg for a total tourniquet time of 103 minutes.? Prior to elevation of the tourniquet, but following exposure of the site of surgery, a surgical pause was performed. At the time of the surgical pause, we confirmed the site and side of surgery. Additionally, we confirmed the appropriate and timely administration of preoperative antibiotics, Ancef 2 g and Transexemic acid 1 g.? The availability of equipment was confirmed, and the patient's identity was verbalized as well.? An additional transexemic acid 1 g was given at the end of the surgical procedure as well. Following the surgical pause, an incision was made centering over the patella continuing proximally and distally as necessary to allow access to the knee joint. Dissection continued through skin and soft tissues using a scalpel. Hemostasis was obtained using electrocautery. The skin incision was followed by a median parapatellar arthrotomy. The leg was extended and the patella was able to be displaced laterally. Appropriate arrays and markers were placed in appropriate position for use of the Konrad. Preoperative planning had been accomplished and was discussed in detail between the 2 surgeons in this case and also the [facility] customer assistance representative. Intraoperative mapping of the femur and tibia was accomplished after the arrays were placed. Internal markers were also placed. Once we had accomplished the Konrad mapping, we began the appropriate resections for placement of the prosthesis. The plan was for a cruciate retaining left total knee arthroplasty. Once appropriate mapping had been accomplished retraction was established using manual retraction by Dr. Qureshi and also the Konrad leg positioner and retractors. The knee was evaluated. There was eburnation particularly of the medial femoral condyle.? There were large osteophytes circumferentially about the trochlear groove as well as the patella and medial tibial plateau.? Appropriate bone resection was accomplished using the Konrad. This started with the femur and subsequently tibial resection was accomplished. Osteophytes were removed following this portion of the procedure. We had performed a medial release at the beginning of the procedure to allow for placement of the array. Proximal tibia was evaluated and it was felt that appropriate size for the tibia was a size 4 which matched the femoral component. A trial reduction was accomplished after osteophytes have been removed and the medial and lateral meniscus. We had removed the anterior cruciate ligament at the beginning of the case and preserve the posterior cruciate ligament. Trial reduction was accomplished with a size 4 femoral cruciate retaining component and a size 4 CS tibial bearing insert which was 9 mm in thickness. With this, we had excellent stability, full extension, and appropriate alignment. From experience, we elected to increase the size of the insert to a 10 mm thick insert. Trial components were removed after the femur had been drilled. Prior to removal of the tibial tray which had been pinned in position with appropriate rotation as determined by the Konrad plan, we broached the tibia. Subsequently, the 4 drill holes were made for the prosthetic component. All trial components had been removed, and the wound was irrigated. Plans were made for insertion of the prosthetic components. Prior to this, the patella was manually prepared. After resection of the articular surface with the jogging system, it was measured and measured a 29 mm patella. We resected approximately 8 mm of patella and patellar height was restored with the patellar component. Once again, the wound was irrigated. The Tritanium tibia was impacted into position.? The beaded femur was then impacted into position in a cementless fashion. The CS tibial insert was placed prior to placement of the femoral component. The patella was pressed into position with a patellar clamp.? Exparel was injected about the components deep and superficially. The knee was then copiously irrigated with betadine and saline and suctioned dry. Attention was then directed to closure. Closure was accomplished with 0 Vicryl in the fascial tissues.? This was followed by Surgiflo and vancomycin powder. Following this, a 2-0 Monocryl was used in the subcutaneous tissues, and the skin was closed with skin nik.? Care was taken to assure an excellent subcutaneous as well as skin closure.? A sterile dressing was then placed consisting of Dermabond Prineo, Telfa, OpSite, sterile soft roll including over the foot, and an Kulwant wrap. The patient was returned the Recovery Room in a satisfactory condition. X-rays were obtained and reviewed there.? The patient will be discharged to the floor for postoperative rehabilitation and pain management. Related Problem List Diagnoses (1) Primary osteoarthritis of left knee:
--- NOTE | 2022-01-16 10:59 | XR_ITS ---
WS: [id number] LEFT KNEE 2 VIEWS AP and cross table lateral imaging is submitted. HISTORY: Status post total knee arthroplasty. COMPARISON: None available. Total knee replacement prosthetic devices are in good position and alignment. Normal position of the patella. Posterior patella arthroplasty. Numerous postsurgical sutures are noted over the anterior kn ee and there are normal postoperative changes in the soft tissues consistent with air, blood and kenya a. No complications are evident. XR/XR knee LT 1-2V [id number] IMPRESSION: Satisfactory appearance of the recent LEFT knee arthroplasty.
--- NOTE | 2022-01-16 12:50 | ANE.PACU2 ---
Inpatient post-anesthesia follow up: Airway intact: Yes Vital signs: Temperature 97.4 F Pulse Rate 67 Respiratory Rate 18 Blood Pressure 125/75 Pulse Oximetry 92 Oxygen Delivery Me thod Room Air Oxygen Flow Rate 8 Fraction of Inspir ed Oxygen Hydration adequate: Yes Nausea and vomiting: No Pain level: 1 Mental status: Baseline
[2022-01-16] MEDS: calcium carbonate 500 mg Chew Tablet 1000 MG PO (17:48)
[2022-01-16] MEDS: sennosides-docusate Tablet 2 TAB PO (17:48)
[2022-01-16] MEDS: CELEcoxib 200 mg Capsule PO (17:48)
[2022-01-16] MEDS: iron polysaccharide complex 150 mg Capsule PO (17:48)
--- NOTE | 2022-01-16 18:08 | PM.MISC ---
Miscellaneous Note Purpose of Documentation: Postop visit Note: Patient is seen following her total knee arthroplasty today. She is able to lift her leg. She did have an episode of orthostatic hypotension when she attempted to ambulate this evening. We will reevaluate tomorrow for discharge to home. She wants to proceed with outpatient physical therapy rather than home therapy at time of discharge.
[2022-01-16] MEDS: oxyCODONE 5 mg IR Tab/Cap PO ×2 (19:24→23:50)
[2022-01-17] VITALS (12 sets, daily range): BP systolic 87–148; BP diastolic 54–83; PULSE 52–80; RESP 16–24; TEMP 36.2–36.8; O2SAT 93–97
[2022-01-17 03:13] LABS: Basophils % 0.3 %; Eosinophils # 0.1 10^3/uL (0.0-0.8); Eosinophils % 0.4 %; Hematocrit 33.2 % (37.0-47.0); Hemoglobin 10.7 g/dL (11.5-15.3); Lymphocytes # 2.2 10^3/uL (0.8-4.8); Lymphocytes % 18.7 %; Mean Corpuscular HGB Conc 32.2 g/dL (30.0-36.0); Mean Corpuscular Hemoglobin 28.8 pg (28.0-34.0); Mean Corpuscular Volume 89.5 fl (81-99); Mean Platelet Volume 11.5 fL (7.4-10.4); Monocytes # 1.2 10^3/uL (0.2-0.9); Monocytes % 10.6 %; Neutrophils # 8.01 10^3/uL (1.8-7.7); Neutrophils % 69.5 %; Nucleated Red Blood Cells % 0 %; Platelet Count 228 10^3/cmm (130-400); Red Blood Count 3.71 10^6/uL (4.1-5.3); Red Cell Distribution Width 12.8 % (12.1-15.1); White Blood Count 11.5 10^3/uL (4.0-10.0)
[2022-01-17 03:31] LABS: Anion Gap 14.6 (5-19); Blood Urea Nitrogen 12 mg/dL (6-20); Calcium 8.8 mg/dL (8.5-10.5); Carbon Dioxide 24 mmol/L (22-29); Chloride 103 mmol/L (98-107); Glomerular Filtration Rate 87.5 mL/min (90-130); Glucose 153 mg/dL (65-115); Osmolality Calculated 289 mOsm/kg (285-295); Potassium 3.6 mmol/L (3.5-5.1); Sodium 138 mmol/L (136-145)
[2022-01-17] MEDS: oxyCODONE 5 mg IR Tab/Cap PO ×4 (03:51→17:42)
[2022-01-17] MEDS: CELEcoxib 200 mg Capsule PO (05:07)
[2022-01-17] MEDS: buPROPion XL (24 HR) 150 mg Tablet PO (05:07)
[2022-01-17] MEDS: acetaminophen 1,000 MG/100 ML PIGGYBACK 400 MG IV (05:08)
[2022-01-17] MEDS: ceFAZolin 2,000 MG in sodium chloride 0.9% (plus) 50 ML 100 MG IV (06:14)
[2022-01-17] MEDS: sodium chloride 0.9% 1,000 ML 999 ML IV (08:29)
[2022-01-17] MEDS: multivitamin therapeutic Tablet 1 TAB PO (09:46)
[2022-01-17] MEDS: docusate sodium 100 mg Capsule PO (09:46)
[2022-01-17] MEDS: aspirin 325 mg EC Tablet PO (09:46)
[2022-01-17] MEDS: calcium carbonate 500 mg Chew Tablet 1000 MG PO (09:46)
[2022-01-17] MEDS: cholecalciferol (vitamin D3) 1,000 unit Tablet 1000 UNIT PO (09:46)
[2022-01-17] MEDS: sennosides-docusate Tablet 2 TAB PO (09:46)
[2022-01-17] MEDS: iron polysaccharide complex 150 mg Capsule PO (09:46)
[2022-01-17] MEDS: ondansetron 2 mg/ML SDV 2 mL 4 MG IVP (11:46)
--- NOTE | 2022-01-17 13:34 | PM.MISC ---
Miscellaneous Note Purpose of Documentation: Delayed discharge from initial planned noon time Note: Last evening, the patient was seen, and she had orthostatic hypotension. This continued into the morning. The patient was given a bolus and was able to ambulate to bedside commode. She had not participated in physical therapy at the time she was seen. This was approximately 12:30 PM. As the patient had not had physical therapy. We will delay her discharge until later in the evening but provided she performs appropriately with this therapy.
[2022-01-17] MEDS: acetaminophen 500 mg Tablet 1000 MG PO (13:55)
--- NOTE | 2022-01-17 17:33 | PM.DCS ---
Discharge Providers Date of Admission: 01/16/22 11:42 Date of Discharge: January 17, 2022 Attending Provider at Admission: Angi Wong MD Attending Provider at Discharge: Angi Wong MD Primary Care Provider: Susanna Callaway APN Diagnoses at Discharge Discharge Diagnosis (1) Status post total left knee replacement not using cement: Status: Acute Permanent problem details: Date of Procedure: January 16, 2022 Diagnosis: Severe degenerative osteoarthritis left knee with slight flexion contracture Procedure done: Konrad assisted left total knee arthroplasty Implants: [employer] total knee system with a size 4 triathlon beaded cruciate retaining femur left, a triathlon titanium tibial component size 4 beaded, a triathlon X3 tibial bearing CS insert size 4 X 10 mm and a beaded triathlon titanium asymmetric patella size 29 x 9 mm (2) Primary osteoarthritis of left knee: Status: Acute Reason for Visit Reason for Visit: Brief History: This 52-year-old woman initially presented to my office with complaints of severe left knee pain.? Conservative measures have included arthroscopic knee surgery and anti-inflammatory medication in addition to physical therapy.? The patient continued to have significant limitations in her activities of daily living.? She was unable to tolerate the pain level of her degenerative osteoarthritis.? Further work-up and discussion led us to decide to perform left total knee arthroplasty.? Preoperatively, discussion was undertaken with the patient that we would planned the Konrad assisted total knee arthroplasty.? She was in agreement with this.? Preoperatively, we also notified her there would be 2 surgeons were required for her surgical intervention to assist with Konrad positioning.? Preoperative planning was accomplished and followed throughout the surgical procedure.? In the office, questions were answered and consents were signed. Hospital Course Hospital Course Following Konrad assisted left total knee arthroplasty, this 52-year-old woman was admitted to the hospital under observation status for postoperative monitoring and physical therapy. On the evening of the first postoperative day, she was doing well and plans were made for her discharge to home the following day. She did have an episode of orthostatic hypotension. The following morning, she had a second episode of orthostatic hypotension, and she had nausea associated with her activity levels. She was not able to participate aggressively in physical therapy the evening of and morning following surgery. She was given a fluid bolus, and she was able to work with physical therapy in the afternoon. She was comfortable being discharged home and her was comfortable with this plan as well. Her calf was soft, her dressing was intact with no evidence of drainage. She was neurologically intact. She therefore was discharged home. Per her preference, she will obtain outpatient physical therapy here in [place]. Physical Exam Const: COMMON NORMALS: no acute distress, average body habitus, patient oriented x3 and alert GENERAL APPEARANCE: cooperative and comfortable ORIENTATION/CONSCIOUSNESS: Yes awake HENMT: COMMON NORMALS: normocephalic and atraumatic HEAD & SCALP: normocephalic and atraumatic Eye: GENERAL EYE: appearance normal, both eyes and all related structures Chest: COMMONS NORMALS: normal inspection of the chest Resp: COMMON NORMALS: normal respiratory effort EFFORT & INSPECTION: Yes able to speak in complete sentences and Yes symmetric chest movement Extremity: LEFT LOWER EXTREMITY: Yes knee joint (Dressing dry and intact. No drainage) Left knee: Yes inspection (No significant swelling.), Yes palpation (Minimal pain.), Yes neurovascular exam (Intact with no evidence of DVT.) and Yes other (Slight ecchymosis.) Neuro: COMMON NORMALS: patient oriented x3 SENSORIUM/ORIENTATION: Yes alert Psych: COMMON NORMALS: mental status grossly normal APPEARANCE: Yes grossly normal ATTITUDE: Yes calm and Yes engaged ATTENTION/CONCENTRATION: Yes attention grossly intact Skin: COMMON NORMALS: no rashes or lesions noted GENERAL SKIN EXAM: no rashes or lesions noted Urinary Catheter Management: Ellis: Cath Placed During This Visit: yes, but has since been removed by the nurse Reason for Continuing Indwelling Catheter: Decision to DC Catheter Urinary Catheter Date of Insertion: 01/16/22 Urinary Catheter Time of Insertion: 07:48 Date Urinary Catheter Removed: 01/17/22 Time Urinary Catheter Discontinued: 05:32 Discharge Data Studies Completed and Pending Completed Studies During Hospitalization Category Date Time Status XR knee LT 1-2V [id number] Urgent Exams 01/16/22 10:59 Completed Radiology Impressions Knee X-Ray 01/16/22 10:59 IMPRESSION: Satisfactory appearance of the recent LEFT knee arthroplasty. Laboratory Results WBC 11.5 10^3/uL (4.0-10.0) H 01/17/22 02:48 RBC 3.71 10^6/uL (4.1-5.3) L 01/17/22 02:48 Hgb 10.7 g/dL (11.5-15.3) L 01/17/22 02:48 Hct 33.2 % (37.0-47.0) L 01/17/22 02:48 MCV 89.5 fl (81-99) 01/17/22 02:48 MCH 28.8 pg (28.0-34.0) 01/17/22 02:48 MCHC 32.2 g/dL (30.0-36.0) 01/17/22 02:48 RDW 12.8 % (12.1-15.1) 01/17/22 02:48 Plt Count 228 10^3/cmm (130-400) 01/17/22 02:48 MPV 11.5 fL (7.4-10.4) H 01/17/22 02:48 Neut % (Auto) 69.5 % 01/17/22 02:48 Lymph % (Auto) 18.7 % 01/17/22 02:48 [place] % (Auto) 10.6 % 01/17/22 02:48 Eos % (Auto) 0.4 % 01/17/22 02:48 Baso % (Auto) 0.3 % 01/17/22 02:48 Neut # (Auto) 8.01 10^3/uL (1.8-7.7) H 01/17/22 02:48 Lymph # (Auto) 2.2 10^3/uL (0.8-4.8) 01/17/22 02:48 [place] # (Auto) 1.2 10^3/uL (0.2-0.9) H 01/17/22 02:48 Eos # (Auto) 0.1 10^3/uL (0.0-0.8) 01/17/22 02:48 Baso # (Auto) 0.0 10^3/uL (0.0-0.1) 01/17/22 02:48 Nucleated RBC % (auto) 0 % 01/17/22 02:48 Nucleated RBCs # 0.0 /100WBC 01/17/22 02:48 Sodium 138 mmol/L (136-145) 01/17/22 02:48 Potassium 3.6 mmol/L (3.5-5.1) 01/17/22 02:48 Chloride 103 mmol/L (98-107) 01/17/22 02:48 Carbon Dioxide 24 mmol/L (22-29) 01/17/22 02:48 Anion Gap 14.6 (5-19) 01/17/22 02:48 BUN 12 mg/dL (6-20) 01/17/22 02:48 Creatinine 0.7 mg/dL (0.5-0.9) 01/17/22 02:48 GFR Calculation 87.5 mL/min (90-130) L 01/17/22 02:48 Glucose 153 mg/dL (65-115) H 01/17/22 02:48 Calculated Osmolality 289 mOsm/kg (285-295) 01/17/22 02:48 Calcium 8.8 mg/dL (8.5-10.5) 01/17/22 02:48 Total Bilirubin 0.3 mg/dL (0.15-1.2) 01/09/22 09:45 AST 24 U/L (0-32) 01/09/22 09:45 ALT 30 U/L (0-33) 01/09/22 09:45 Alkaline Phosphatase 87 U/L (35-105) 01/09/22 09:45 Total Protein 7.3 g/dL (6.6-8.7) 01/09/22 09:45 Albumin 4.3 g/dL (3.5-5.2) 01/09/22 09:45 Globulin 3.0 g/dL (1.3-4.6) 01/09/22 09:45 Urine Color Yellow (Yellow) 01/09/22 10:07 Urine Appearance Clear (CLEAR) 01/09/22 10:07 Urine pH 6.5 (5-7) 01/09/22 10:07 Ur Specific [place] 1.005 (1.005-1.030) 01/09/22 10:07 Urine Protein Neg (Negative) 01/09/22 10:07 Urine Glucose (UA) Norm (Normal) 01/09/22 10:07 Urine Ketones Negative (Negative) 01/09/22 10:07 Urine Blood Neg (Negative) 01/09/22 10:07 Urine Nitrate Negative (Negative) 01/09/22 10:07 Urine Bilirubin Neg (Negative) 01/09/22 10:07 Urine Urobilinogen Norm mg/dL (Negative) 01/09/22 10:07 Ur Leukocyte Esterase Negative (Negative) 01/09/22 10:07 Vitals Last Vital Signs Temp 98.2 F 01/17/22 16:00 Pulse 77 01/17/22 16:00 Resp 18 01/17/22 16:00 BP 148/83 01/17/22 16:00 Pulse Ox 93 01/17/22 16:00 O2 Del Method 01/17/22 16:00 O2 Flow Rate 8 01/16/22 11:05 Discharge Plan Discharge Patient Disposition: Home Condition: Stable Prescriptions: New aspirin 325 mg Tablet,Delayed Release (Dr/Ec) 325 mg PO DAILY 30 Days Qty: 30 0RF celecoxib 200 mg Capsule 200 mg PO Q12H Qty: 60 0RF oxycodone 5 mg Tablet 5 mg PO Q4H PRN (Reason: Moderate Pain) 7 Days Qty: 30 0RF oxycodone 5 mg tablet 5 mg PO Q4H PRN (Reason: pain) 7 Days Qty: 30 0RF ondansetron HCl 4 mg tablet 4 mg PO Q6H PRN (Reason: nausea and vomiting) Qty: 30 0RF Continued lisinopril-hydrochlorothiazide 10-12.5 mg tablet 1 tab PO DAILY bupropion HCl [Wellbutrin XL] 150 mg tablet extended release 24 hr 150 mg PO QAM albuterol sulfate [Ventolin HFA] 90 mcg/actuation HFA aerosol inhaler 2 puff INHALATION Q6H PRN (Reason: shortness of breath or wheezing) Qty: 18 0RF calcium carbonate-vitamin D2 600 mg calcium- 200 unit tablet 1 tab PO DAILY multivitamin Tablet 1 tab PO DAILY docusate sodium [Colace] 100 mg capsule 100 mg PO DAILY Premarin 0.9 mg Tablet 0.9 mg PO BEDTIME Rx Instructions: cyclically Held diclofenac sodium [Voltaren Arthritis Pain] 1 % gel 4 g topical QID Qty: 100 1RF Hold Instructions: Resume on 02/07/22. Rx Instructions: apply to single knee, ankle, foot; for foot includes sole/toes/top of foot ibuprofen [IBU] 800 mg tablet 800 mg PO TID PRN (Reason: pain) Qty: 90 0RF Hold Instructions: Resume on 02/14/22. Rx Instructions: Take 1 tablet TID as needed for inflammation Discharge Orders: Discharge Order (Routine); Ordered 01/17/22 Ordered By: Angi Wong Other Ambulatory Orders: Physical Therapy Eval and Treat Outpatient (Order) Timeframe: 3 Days Facility: [facility] - Location: Physical Therapy Ordered By: Angi Wong Referrals: Angi Wong MD [Physician] - 01/31/22 10:30 am Discharge Diet: Advance as tolerated and Usual diet Discharge Activity: Resume usual activity, Increase activity as tolerated, Limit activity as instructed, Use walker/crutches as instructed and As per PT/OT instructions Patient Instructions: Oxycodone/Acetaminophen (By mouth), Aspirin (By mouth), Opioid Safety Activity Restrictions/Additional Instructions: You may shower, but keep dressing in place over your wound. Weightbearing as tolerated. Physical therapy for gait training, ambulation, and strengthening. Range of motion as tolerated. Discharge Attestations Time Spent in Discharge Care*: greater than 30 min Specific Discharge Activities: educating patient, educating and/or supporting family/caregiver, documenting/other paperwork and evaluating patient/reviewing data Quality Metrics Clinical Quality Measures [ No reported AMI, CVA or VTE this stay] Coding Level of Care Code Acute g FW DC note Diagnoses Status post total left knee replacement not using cement Z96.652 Primary osteoarthritis of left knee M17.12
== END 2022-01-17 17:59 | disposition home or self-care (01) ==
LOC: MEDSURG 11:42
PROVIDERS: Admitting Provider Specialist; PCP Nurse Practitioner Family; Visit Provider Specialist
PROC: 8E0Y0CZ Robotic Assisted Procedure of Lower Extremity, Open Approach (ICD-10-PCS; CPT 27447; principal; 2022-01-16 07:00)
DX: M17.12 Unilateral primary osteoarthritis, left knee (principal); I10 Essential (primary) hypertension; F41.9 Anxiety disorder, unspecified; F32.A Depression, unspecified
CPT/HCPCS: 27447; 36415; 51702; 73560; 80048; 80053; 81003; 85025; 97110; 97116; 97161; 97165; 97530; C1776; C9290; G0378; J0690; J1100; J2250; J2405; J2704; J2795; J3010; J3370; J3490; J7030

== ENCOUNTER 2022-01-25 15:34 | Outpatient (RCR) | payer OTHER, SELFPAY | END 2022-02-05 23:59 | disposition home or self-care (01) | LOC: SPT 15:34 | PROVIDERS: PCP Nurse Practitioner Family; Visit Provider Specialist | DX: Z47.89 Encounter for other orthopedic aftercare (principal); Z96.652 Presence of left artificial knee joint | CPT/HCPCS: 97110; 97161 ==

== ENCOUNTER → 2022-01-31 10:58 | Outpatient (BNVA) | payer OTHER, SELFPAY | PROVIDERS: PCP Nurse Practitioner Family; Visit Provider Nurse Practitioner Family | DX: Z96.652 Presence of left artificial knee joint (principal) | CPT/HCPCS: 73560; 73565 ==

== ENCOUNTER 2022-02-06 06:00 | Outpatient (RCR) | payer OTHER, SELFPAY | END 2022-03-07 23:59 | disposition home or self-care (01) | LOC: SPT 06:00 | PROVIDERS: PCP Nurse Practitioner Family; Visit Provider Specialist | DX: Z96.652 Presence of left artificial knee joint (principal) | CPT/HCPCS: 97110 ==

== ENCOUNTER → 2022-02-12 10:07 | Outpatient (BNVA) | payer OTHER, SELFPAY | PROVIDERS: PCP Nurse Practitioner Family; Visit Provider Specialist | DX: Z96.652 Presence of left artificial knee joint (principal) | CPT/HCPCS: 73560; 73565 ==

== ENCOUNTER 2022-03-08 06:00 | Outpatient (RCR) | payer OTHER, SELFPAY | END 2022-04-07 23:59 | disposition home or self-care (01) | LOC: SPT 06:00 | PROVIDERS: PCP Nurse Practitioner Family; Visit Provider Specialist | DX: Z47.89 Encounter for other orthopedic aftercare (principal); Z96.652 Presence of left artificial knee joint | CPT/HCPCS: 97110; 97140; 97530 ==

== ENCOUNTER → 2022-03-26 08:56 | Outpatient (BNVA) | payer OTHER, SELFPAY | PROVIDERS: PCP Nurse Practitioner Family; Visit Provider Specialist | DX: Z96.652 Presence of left artificial knee joint (principal) | CPT/HCPCS: 73560; 73565 ==

== ENCOUNTER 2022-04-08 06:00 | Outpatient (RCR) | payer OTHER, SELFPAY | END 2022-05-08 23:59 | disposition home or self-care (01) | LOC: SPT 06:00 | PROVIDERS: PCP Nurse Practitioner Family; Visit Provider Specialist | DX: Z47.1 Aftercare following joint replacement surgery (principal); Z96.652 Presence of left artificial knee joint | CPT/HCPCS: 97110; 97530 ==

== ENCOUNTER 2022-05-09 06:00 | Outpatient (RCR) | payer OTHER, SELFPAY | END 2022-06-05 23:59 | disposition home or self-care (01) | LOC: SPT 06:00 | PROVIDERS: PCP Nurse Practitioner Family; Visit Provider Specialist | DX: Z47.1 Aftercare following joint replacement surgery (principal); Z96.652 Presence of left artificial knee joint | CPT/HCPCS: 97110; 97530 ==

== ENCOUNTER → 2022-05-21 09:23 | Outpatient (BNVA) | payer OTHER, SELFPAY | PROVIDERS: PCP Nurse Practitioner Family; Visit Provider Specialist | DX: Z96.652 Presence of left artificial knee joint (principal); M17.12 Unilateral primary osteoarthritis, left knee | CPT/HCPCS: 73560; 73565 ==

== ENCOUNTER 2022-06-06 06:00 | Outpatient (RCR) | payer OTHER, SELFPAY | END 2022-07-06 23:59 | disposition home or self-care (01) | LOC: SPT 06:00 | PROVIDERS: PCP Nurse Practitioner Family; Visit Provider Specialist | DX: Z47.1 Aftercare following joint replacement surgery (principal); Z96.652 Presence of left artificial knee joint | CPT/HCPCS: 97110 ==

== ENCOUNTER 2022-06-14 09:44 | Outpatient (CLI) | payer OTHER, SELFPAY ==
--- NOTE | 2022-06-14 09:47 | MM_ITS ---
WS: [email or web address] BILATERAL SCREENING DIGITAL TOMOSYNTHESIS MAMMOGRAM WITH CAD HISTORY: SCREENING COMPARISON: 11/07/2020 11/02/2019 Bilateral CC and MLO views with tomosynthesis and synthetic mammography submitted. Computer aided det ection analyzed. Breast composition: There are scattered areas of fibroglandular density. No suspicious masses, microc alcifications or architectural distortion. New 5 mm nodule in the anterior LEFT breast just central a nd slightly medial to the nipple line. Otherwise the asymmetries within each breast are stable. MM/[place] [id number] IMPRESSION: BI-RADS: 0-Incomplete: Need additional imaging evaluation FOLLOW UP: Need Additional Imaging LEFT breast: Spot compression views (CC and MLO). True ML. Ultrasound to follow if abnormality persists.
== END 2022-06-14 09:45 | disposition home or self-care (01) ==
PROVIDERS: PCP Nurse Practitioner Family; Visit Provider Nurse Practitioner Family
DX: Z12.31 Encounter for screening mammogram for malignant neoplasm of breast (principal); N63.20 Unspecified lump in the left breast, unspecified quadrant
CPT/HCPCS: 77063; 77067

== ENCOUNTER 2022-06-15 09:41 | Outpatient (CLI) | payer OTHER, SELFPAY ==
--- NOTE | 2022-06-15 09:54 | MM_ITS ---
WS: [email or web address] ADDITIONAL VIEWS LEFT MAMMOGRAM with tomosynthesis. LEFT BREAST ULTRASOUND HISTORY: ABNORMAL MAMMO COMPARISON: 06/14/2022, 11/07/2020 and 11/02/2019 LEFT MAMMOGRAM: Spot compression views and true ML with tomosynthesis and sympathetic mammography. The nodular asymmetries persists in the anterior breast measuring 6 mm. Ultrasound to be performed al so. LEFT BREAST ULTRASOUND 2-D and color Doppler imaging submitted. Directly posterior to the LEFT nipple are several small hypoechoic areas measuring up to 6 mm. These may be ductal in etiology or small complex cysts. These do not shadow and are not solid. Likely benig n. MM/[place] [id number] IMPRESSION: BI-RADS: 3-Probably Benign FOLLOW UP: 6 Month Follow-up Ultrasound follow-up LEFT breast in 6 months.
--- NOTE | 2022-06-15 10:32 | US_ITS ---
WS: [email or web address] ADDITIONAL VIEWS LEFT MAMMOGRAM with tomosynthesis. LEFT BREAST ULTRASOUND HISTORY: ABNORMAL MAMMO COMPARISON: 06/14/2022, 11/07/2020 and 11/02/2019 LEFT MAMMOGRAM: Spot compression views and true ML with tomosynthesis and sympathetic mammography. The nodular asymmetries persists in the anterior breast measuring 6 mm. Ultrasound to be performed al so. LEFT BREAST ULTRASOUND 2-D and color Doppler imaging submitted. Directly posterior to the LEFT nipple are several small hypoechoic areas measuring up to 6 mm. These may be ductal in etiology or small complex cysts. These do not shadow and are not solid. Likely benig n. US/US breast LT limited* [id number] IMPRESSION: BI-RADS: 3-Probably Benign FOLLOW UP: 6 Month Follow-up Ultrasound follow-up LEFT breast in 6 months.
== END 2022-06-15 09:42 | disposition home or self-care (01) ==
PROVIDERS: PCP Nurse Practitioner Family; Visit Provider Nurse Practitioner Family
DX: R92.8 Other abnormal and inconclusive findings on diagnostic imaging of breast (principal)
CPT/HCPCS: 76642; 77061; G0279

== ENCOUNTER → 2022-07-04 13:59 | Outpatient (BNVA) | payer OTHER, SELFPAY | PROVIDERS: PCP Nurse Practitioner Family; Visit Provider Specialist | DX: Z96.652 Presence of left artificial knee joint (principal); M25.462 Effusion, left knee | CPT/HCPCS: 73560; 73565 ==

== ENCOUNTER → 2022-07-18 12:18 | Outpatient (BNVA) | payer OTHER, SELFPAY | PROVIDERS: PCP Nurse Practitioner Family; Visit Provider Internal Medicine | DX: M53.3 Sacrococcygeal disorders, not elsewhere classified (principal) | CPT/HCPCS: 36415; 72202; 80053; 83516; 84550; 85025; 85651; 86140 ==

== ENCOUNTER 2022-08-31 11:13 | Outpatient (CLI) | payer OTHER, SELFPAY ==
[2022-08-31 11:45] LABS: Basophils # 0.1 10^3/uL (0.0-0.1); Basophils % 0.8 %; Eosinophils # 0.3 10^3/uL (0.0-0.8); Eosinophils % 3.7 %; Hematocrit 40.9 % (37.0-47.0); Hemoglobin 12.8 g/dL (11.5-15.3); Lymphocytes # 2.3 10^3/uL (0.8-4.8); Lymphocytes % 31.9 %; Mean Corpuscular HGB Conc 31.3 g/dL (30.0-36.0); Mean Corpuscular Hemoglobin 27.8 pg (28.0-34.0); Mean Corpuscular Volume 88.9 fl (81-99); Mean Platelet Volume 10.8 fL (7.4-10.4); Monocytes # 0.7 10^3/uL (0.2-0.9); Monocytes % 9.8 %; Neutrophils # 3.75 10^3/uL (1.8-7.7); Neutrophils % 53.1 %; Nucleated Red Blood Cells % 0 %; Platelet Count 263 10^3/cmm (130-400); Red Cell Distribution Width 13.1 % (12.1-15.1); White Blood Count 7.1 10^3/uL (4.0-10.0)
[2022-08-31 12:34] LABS: Erythrocyte Sedimentation Rate 13 mm/hr (0-15)
[2022-08-31 12:36] LABS: Alanine Aminotransferase 44 U/L (0-33); Albumin Level 4.1 g/dL (3.5-5.2); Alkaline Phosphatase 85 U/L (35-105); Anion Gap 13.5 (5-19); Aspartate Amino Transferase 42 U/L (0-32); Blood Urea Nitrogen 10 mg/dL (6-20); C Reactive Protein 22.1 mg/L (0.0-4.9); Calcium 8.9 mg/dL (8.5-10.5); Carbon Dioxide 29 mmol/L (22-29); Chloride 100 mmol/L (98-107); Glomerular Filtration Rate 104.6 mL/min (90-130); Glucose 87 mg/dL (65-115); Osmolality Calculated 286 mOsm/kg (285-295); Potassium 3.5 mmol/L (3.5-5.1); Sodium 139 mmol/L (136-145); Total Bilirubin 0.2 mg/dL (0.15-1.2); Total Protein 7.1 g/dL (6.6-8.7)
[2022-09-05 15:54] LABS: Quantiferon Mitogen >10.00 IU/mL; Quantiferon Nil 0.03 IU/mL; Quantiferon TB Gold NEGATIVE (NEGATIVE)
== END 2022-08-31 11:14 | disposition home or self-care (01) ==
PROVIDERS: Internal Medicine; PCP Nurse Practitioner Family; Visit Provider Internal Medicine
DX: R79.82 Elevated C-reactive protein (CRP) (principal); M53.3 Sacrococcygeal disorders, not elsewhere classified
CPT/HCPCS: 36415; 80053; 85025; 85651; 86140; 86480

== ENCOUNTER → 2022-10-29 14:35 | Outpatient (BNVA) | payer OTHER, SELFPAY | PROVIDERS: PCP Nurse Practitioner Family; Visit Provider Specialist | DX: Z96.652 Presence of left artificial knee joint (principal); M17.12 Unilateral primary osteoarthritis, left knee | CPT/HCPCS: 73560; 73565 ==

== ENCOUNTER → 2022-12-13 15:30 | Outpatient (BNVA) | payer OTHER, SELFPAY | PROVIDERS: PCP Nurse Practitioner Family; Visit Provider Internal Medicine | DX: M53.3 Sacrococcygeal disorders, not elsewhere classified (principal); R79.82 Elevated C-reactive protein (CRP); E79.0 Hyperuricemia without signs of inflammatory arthritis and tophaceous disease; Z15.89 Genetic susceptibility to other disease; R21 Rash and other nonspecific skin eruption | CPT/HCPCS: 36415; 80053; 83520; 84550; 85025; 85651; 86140 ==

== ENCOUNTER → 2023-04-16 15:08 | Outpatient (BNVA) | payer OTHER, SELFPAY | PROVIDERS: PCP Nurse Practitioner Family; Visit Provider Internal Medicine | DX: M53.3 Sacrococcygeal disorders, not elsewhere classified (principal); R79.82 Elevated C-reactive protein (CRP); E79.0 Hyperuricemia without signs of inflammatory arthritis and tophaceous disease; Z15.89 Genetic susceptibility to other disease; R21 Rash and other nonspecific skin eruption | CPT/HCPCS: 36415; 80053; 84443; 85025; 85651; 86140 ==

== ENCOUNTER → 2023-05-28 08:24 | Outpatient (BNVA) | payer OTHER, SELFPAY | PROVIDERS: PCP Nurse Practitioner Family; Visit Provider Dermatology | DX: Z13.6 Encounter for screening for cardiovascular disorders (principal) | CPT/HCPCS: 80061; 82947; 83036 ==

== ENCOUNTER 2023-06-26 07:52 | Outpatient (CLI) | payer OTHER, SELFPAY ==
--- NOTE | 2023-06-26 07:58 | US_ITS ---
WS: [email or web address] Abdomen ultrasound, 06/26/2023 Clinical Data: ELEVATED LFT'S Comparison: None. Findings: The pancreas shows no cyst, pseudocyst or evidence of pancreatitis. The liver shows no cysts, masses or dilated intrahepatic ducts. The echotexture of the liver shows fa tty infiltration. The liver is enlarged measuring 22.2 cm. The portal vein shows normal flow and shaun ures 1.0 cm. The gallbladder is absent. The right kidney is 11.7 cm. No cysts, masses or hydronephrosis is seen. The left kidney is 9.9 cm. No cysts, masses or hydronephrosis is seen. The abdominal aorta is not dilated and the inferior vena cava has normal flow. No vascular abnormalit ies are seen. The aorta measures 1.5 cm in the IVC 1.0 cm. The spleen measures 11.7 cm and there are no intrasplenic masses or capsular abnormalities. Impression: Fatty infiltration of the liver with hepatomegaly
== END 2023-06-26 07:53 | disposition home or self-care (01) ==
LOC: RAD 07:53
PROVIDERS: Visit Provider Nurse Practitioner Family
DX: R79.89 Other specified abnormal findings of blood chemistry (principal); K76.0 Fatty (change of) liver, not elsewhere classified; R16.0 Hepatomegaly, not elsewhere classified; M17.11 Unilateral primary osteoarthritis, right knee; Z96.652 Presence of left artificial knee joint
CPT/HCPCS: 73560; 73565; 76700

== ENCOUNTER → 2023-10-14 15:50 | Outpatient (BNVA) | payer OTHER, SELFPAY | PROVIDERS: Visit Provider Specialist | DX: M17.11 Unilateral primary osteoarthritis, right knee; E66.01 Morbid (severe) obesity due to excess calories; Z68.41 Body mass index [BMI] 40.0-44.9, adult; M25.562 Pain in left knee; M25.561 Pain in right knee | CPT/HCPCS: 73560; 73565 ==

== ENCOUNTER → 2024-02-03 15:38 | Outpatient (BNVA) | payer OTHER, SELFPAY | PROVIDERS: Visit Provider Specialist | DX: M17.11 Unilateral primary osteoarthritis, right knee (principal); M25.562 Pain in left knee | CPT/HCPCS: 73560; 73565 ==

== ENCOUNTER 2024-03-17 10:20 | Outpatient (CLI) | payer OTHER, SELFPAY ==
--- NOTE | 2024-03-17 11:00 | CT_ITS ---
WS: [email or web address] CT RIGHT KNEE, NONCONTRAST [facility] TECHNIQUE: Noncontrast CT of the RIGHT knee to include the RIGHT hip and ankle. CLINICAL INFORMATION: M17.11 - Unilateral primary osteoarthritis, right knee COMPARISON: None. DLP: 927.[address] scans at [facility] use at least one of these dose optimization techniques: automated e xposure control; mA and/or kV adjustment per patient size (includes targeted exams where dose is matc hed to clinical indication); or iterative reconstruction. FINDINGS: Degenerative arthritis sacroiliac joints. Sigmoid constipation. Moderate to advanced tricompartmental arthritis RIGHT knee. Hypertrophic patella. Hypertrophic changes along the joint line. Trace suprapa tellar fluid. CT/CT knee RT [place] [id number] IMPRESSION: Images obtained for preoperative purposes.
== END 2024-03-17 10:21 | disposition home or self-care (01) ==
PROVIDERS: PCP Nurse Practitioner Family; Visit Provider Specialist
DX: Z01.818 Encounter for other preprocedural examination (principal); M17.11 Unilateral primary osteoarthritis, right knee; M79.4 Hypertrophy of (infrapatellar) fat pad
CPT/HCPCS: 73700

== ENCOUNTER 2024-03-24 09:02 | Outpatient (CLI) | payer OTHER, SELFPAY ==
[2024-03-24 09:33] LABS: Basophils # 0.1 10^3/uL (0.0-0.1); Eosinophils # 0.2 10^3/uL (0.0-0.8); Eosinophils % 1.8 %; Hematocrit 43.3 % (36-47); Lymphocytes # 2.5 10^3/uL (0.8-4.8); Lymphocytes % 29.5 %; Mean Corpuscular HGB Conc 31.6 g/dL (30-55); Mean Corpuscular Hemoglobin 28.7 pg (27-33); Mean Corpuscular Volume 90.6 fl (85-98); Mean Platelet Volume 11.4 fL (7.4-10.4); Monocytes # 0.7 10^3/uL (0.2-0.9); Monocytes % 8.2 %; Neutrophils # 4.91 10^3/uL (1.8-7.7); Neutrophils % 59.1 %; Nucleated Red Blood Cells % 0 %; Platelet Count 352 10^3/cmm (157-399); Red Blood Count 4.78 10^6/uL (3.85-5.65); Red Cell Distribution Width 13.1 % (12.1-15.1)
[2024-03-24 09:35] LABS: Bilirubin Urine Negative (Negative); Blood Urine Negative (Negative); Glucose Urine UA Negative (Normal); Ketones Urine Negative (Negative); Leukocyte Esterase Urine Negative (Negative); Nitrate Urine Negative (Negative); Protein Urine Negative (Negative); Specific Gravity, Urine 1.005 (1.005-1.030); Urine Appearance Clear (CLEAR); Urine Color Yellow (Yellow); Urobilinogen Urine 0.2 mg/dL (Negative)
[2024-03-24 09:39] LABS: Add Urine Microscopic? YES; Bacteria Urine 1+ /hpf; Hyaline Casts Urine 0-4 /lpf; RBC Urine 0-2 /hpf (0-2); WBC Urine 0-5 /hpf (0-5)
[2024-03-24 09:49] LABS: Alanine Aminotransferase 42 U/L (0-33); Albumin Level 4.5 g/dL (3.5-5.2); Alkaline Phosphatase 100 U/L (35-105); Blood Urea Nitrogen 11 mg/dL (6-20); Calcium 9.5 mg/dL (8.5-10.5); Carbon Dioxide 26 mmol/L (22-29); Chloride 101 mmol/L (98-107); Globulin 3.2 g/dL (1.3-4.6); Glomerular Filtration Rate 86.9 mL/min (90-130); Glucose 107 mg/dL (65-115); Osmolality Calculated 284 mOsm/kg (285-295); Sodium 137 mmol/L (136-145); Total Bilirubin 0.6 mg/dL (0.15-1.2); Total Protein 7.7 g/dL (6.6-8.7)
[2024-03-24 09:59] LABS: Anion Gap 14.2 (5-19); Aspartate Amino Transferase 37 U/L (0-32); Potassium 4.2 mmol/L (3.5-5.1)
== END 2024-03-24 09:03 | disposition home or self-care (01) ==
PROVIDERS: Specialist; PCP Nurse Practitioner Family; Visit Provider Nurse Practitioner Family
DX: Z01.818 Encounter for other preprocedural examination (principal)
CPT/HCPCS: 36415; 80053; 81001; 85025

== ENCOUNTER → 2024-03-25 09:37 | Outpatient (BNVA) | payer OTHER, SELFPAY | PROVIDERS: PCP Family Medicine; Visit Provider Family Medicine | DX: Z01.818 Encounter for other preprocedural examination (principal); R30.0 Dysuria | CPT/HCPCS: 81003 ==

== ENCOUNTER 2024-03-30 09:38 | Outpatient (CLI) | payer OTHER, SELFPAY ==
[2024-03-30 10:21] LABS: Bilirubin Urine Negative (Negative); Blood Urine Negative (Negative); Glucose Urine UA Negative (Normal); Ketones Urine Negative (Negative); Leukocyte Esterase Urine Negative (Negative); Nitrate Urine Negative (Negative); Protein Urine Negative (Negative); Specific Gravity, Urine 1.016 (1.005-1.030); Urine Appearance Clear (CLEAR); Urine Color Yellow (Yellow); pH Urine 6.5 (5-7)
[2024-03-30 10:30] LABS: Bacteria Urine None Seen /hpf; Hyaline Casts Urine 0-4 /lpf; RBC Urine 0-2 /hpf (0-2); Squamous Epithelial Cell Urine 0-5 /hpf (0-5); WBC Urine 0-5 /hpf (0-5)
== END 2024-03-30 09:39 | disposition home or self-care (01) ==
PROVIDERS: PCP Family Medicine; Visit Provider Family Medicine
DX: R30.0 Dysuria (principal)
CPT/HCPCS: 81001

== ENCOUNTER 2024-04-09 11:10 | Observation (INO) | payer OTHER, SELFPAY ==
[2024-04-09] VITALS (13 sets, daily range): BP systolic 76–152; BP diastolic 51–92; PULSE 63–120; RESP 15–18; TEMP 36.1–36.8; O2SAT 94–99; BMI 37.1
[2024-04-09] MEDS: sodium chloride 0.9% 1,000 ML 30 ML IV (06:39)
[2024-04-09] MEDS: acetaminophen 1,000 MG/100 ML PIGGYBACK 400 MG IV ×3 (06:40→21:00)
[2024-04-09] MEDS: gabapentin 300 mg Capsule PO (06:42)
[2024-04-09] MEDS: CELEcoxib 200 mg Capsule 400 MG PO (06:42)
[2024-04-09] MEDS: scopolamine 1.5 Patch 1 PATCH TRANSDERMA (06:47)
--- NOTE | 2024-04-09 07:04 | P.HPUD_ITS ---
Surgery/Procedure H&P Update DATE OF PROCEDURE: April 09, 2024 DATE H&P PERFORMED: 03/25/24 H&P UPDATE INFORMATION: I have reviewed H&P completed within last 30 days, I have examined patient prior to procedure, No changes to prior documentation and H[place] is [place] [facility] date indicated PLANNED PROCEDURE: Operation Date: 04/09/24 08:00 Proposed Procedures p Konrad Robot Total Knee Arthroplasty(Right) - Angi Wong MD Related Problem List Diagnoses (1) Primary osteoarthritis of right knee:
--- NOTE | 2024-04-09 07:08 | ANES.PREANE2 ---
Pre-Anesthetic Assessment Height/Weight: Height 1.63 m Weight 92.533 kg Temp Pulse Resp BP Pulse Ox O2 Del Method 97.7 F 84 16 152/91 99 Room Air 04/09/24 06:20 04/09/24 06:20 04/09/24 06:20 04/09/24 06:20 04/09/24 06:20 04/09/24 06:20 Operation Date: 04/09/24 08:00 Proposed Procedures p Konrad Robot Total Knee Arthroplasty(Right) - Angi Wong MD Familial anesthetic complications: PONV Was Beta Anthony taken within 24 hours: N/A Was Clonidine taken within 24 hours: N/A Last intake: Intake Last Liquid Date 04/08/24 Last Liquid Time 22:30 Last Solid Date 04/08/24 Last Solid Time 22:30 Social No alcohol and No tobacco Exam alert, oriented x 3, clear to auscultation bilaterally and regular rate & rhythm Airway Mallampati: Class II Dentition: false CV/HEM Hypertension Musc/skel Rheumatoid Arthritis Anesthetic Plan ASA status: 3 Anesthesia: Regional (specify below) Risk of > 500 ml blood loss (7ml/kg in children): Yes, adequate IV access and fluids planned Medications/Allergies Home Medications Medication Instructions Recorded Confirmed Last Taken Type bupropion HCl 150 mg 24 hr tablet, 150 mg PO QAM 05/14/19 04/09/24 04/09/24 History extended release (Wellbutrin XL) lisinopril 10 1 tab PO DAILY 05/14/19 04/09/24 04/08/24 History mg-hydrochlorothiazide 12.5 mg tablet calcium carb-ergocalciferol (vit 1 tab PO DAILY 03/08/20 04/09/24 04/06/24 History D2) 600 mg calcium-200 unit tablet docusate sodium 100 mg capsule 100 mg PO DAILY 03/08/20 04/09/24 06/14/21 History (Colace) multivitamin 1 tab PO DAILY 03/08/20 04/09/24 04/08/24 History ibuprofen 800 mg tablet 800 mg PO TID PRN inflammation and 02/12/22 04/09/24 04/04/24 Rx pain #90 tabs turmeric 400 mg capsule 400 mg PO .QD 06/26/23 04/09/24 04/06/24 History progesterone micronized 100 mg 200 mg (2 x 100 mg) PO BEDTIME 01/17/24 04/09/24 04/05/24 Rx capsule (Prometrium) #180 caps estradiol 0.05 mg/24 hr semiweekly 1 patch transdermal .twice weekly 03/04/24 04/09/24 04/02/24 Rx transdermal patch #8 ea phentermine 37.5 mg tablet 37.5 mg PO DAILY 03/25/24 04/09/24 03/23/24 History Allergies Allergy/AdvReac Type Severity Reaction Status Date / Time No Known Allergies Allergy Verified 03/25/24 09:54 Current Medications Generic Name Dose Route Start Last Admin Trade Name Freq PRN Reason Stop Dose Admin Sodium Chloride 1,000 mls @ 30 mls/hr 04/09/24 06:00 04/09/24 06:39 Sodium Chloride 0.9% IV 04/10/24 05:59 30 mls/hr .Q24H NEVAEH Administration PFSH Anesthesia Medical History Connective tissue disease Knee effusion, left Surgical History Status post total left knee replacement not using cement Date of Procedure: January 16, 2022 Diagnosis: Severe degenerative osteoarthritis left knee with slight flexion contracture Procedure done: Konrad assisted left total knee arthroplasty Implants: [employer] total knee system with a size 4 triathlon beaded cruciate retaining femur left, a triathlon titanium tibial component size 4 beaded, a triathlon X3 tibial bearing CS insert size 4 X 10 mm and a beaded triathlon titanium asymmetric patella size 29 x 9 mm H/O: hysterectomy 03/28/2016- Total abdominal hysterectomy with bilateral salpingo-oophorectomy. Performed per Dr. Watson [place], [place] H/O dilation and curettage 03/07/2016- [place] [facility] H/O lumpectomy 01/31/2006- Performed by Dr. Garcia at [facility] in [place], [place], Benign findings. S/P hemorrhoidectomy 2004 H/O section 2003 H/O tubal ligation 2003 H/O wrist surgery 2003- right tendinitis S/P cholecystectomy 2000 H/O lymph node excision 1998 H/O laparoscopy 1991- endometriosis H/O oral surgery 06/2017 H/O arthroscopy 09/04/2018- right knee, Dr. Velázquez at [facility] Family History Father Hypertension Heart disease Hyperlipidemia Diabetes Grandmother Heart disease paternal Breast cancer maternal Mother Cerebral aneurysm Ovarian cancer Grandfather Brain cancer paternal Denies family history of Colon cancer Clotting disorder Anesthesia complication Bleeding disorder Uterine cancer Thyroid disease Stroke Social History Smoking and tobacco/nicotine status: never used tobacco/nicotine Data Anesthesia Cardiac Studies: No Data to Display
--- NOTE | 2024-04-09 07:09 | ANES.PROC ---
Anesthesia Procedures Procedure/Date: 04/09/24 Nerve Block ^: Nerve Block 1: Main Anesthesia: spinal anesthesia block Time Out Performed: Yes Consent: requested by attending/covering physician, from patient, from other, risks and benefits reviewed and patient agrees to proceed Nerve block location: adductor canal (R) Anesthesia monitors applied: pulse oximetry, EKG, BP cuff and oxygen Nerve block position: supine Anesthetic Used: ropivicaine 0.5% (30 ml) and with decadron (4 mg) Ultrasound used to: recognize landmarks and visualize and ID femerol nerve Nerve Stimulator Used?: No Interscalene/Femoral BLK: 4 stimuplex 21 g needle used for position and inplane approach, visualize local anesthetic spread and no vascular puncture identified Injection: neg aspiration of heme Patient Tolerated Procedure: well Complications: none
[2024-04-09] MEDS: ceFAZolin 2,000 mg SDV 2000 MG IVP ×3 (08:20→21:01)
[2024-04-09] MEDS: tranexamic acid 1,000 MG/100 ML PREMIX 600 MG IV ×2 (08:25→16:16)
[2024-04-09] MEDS: BUPivacaine liposome 13.3 mg/mL SDV 20 mL 200 MG INFILTRATI (09:13)
[2024-04-09] MEDS: ceFAZolin 1,000 mg SDV 2000 MG IRRIGATION (09:15)
[2024-04-09] MEDS: VANCOMYCIN ADD-Vantage 1,000 MG VIAL 1000 MG INTRA-ARTI (09:16)
--- NOTE | 2024-04-09 10:47 | XRR_ITS ---
PROCEDURE INFORMATION: Exam: XR Right Knee Exam date and time: 04/09/2024 11:01 AM Age: 54 years old Clinical indication: Device placement; Joint replacement hardware; Prior surgery; Surgery date: Post-operative (0-2 days); Surgery type: Right knee arthroplasty; Additional info: Right total knee arthroplasty TECHNIQUE: Imaging protocol: Radiologic exam of the right knee. Views: 1 or 2 views. COMPARISON: CT knee RT [facility] [id number] 03/17/2024 10:59 AM FINDINGS: Bones/joints: A knee prosthesis is well seated and well aligned. I see no fracture. Intra-articular air is noted. Soft tissues: Normal. XR/XR knee RT 1-2V [id number] IMPRESSION: Intact postoperative knee prosthesis
--- NOTE | 2024-04-09 10:48 | PM.OP ---
Operative Report Date of procedure: April 09, 2024 Pre-op diagnosis: Severe degenerative osteoarthritis right knee with slight hyperextension Post-op diagnosis: Severe degenerative osteoarthritis right knee with slight hyperextension Post-op findings: Severe degenerative osteoarthritis of the right knee with slight hyperextension and large osteophytes Procedure done: Right total knee arthroplasty with Konrad guidance Implants: The Dharmesh total knee system with a size 4 triathlon beaded cruciate retaining femur right, a triathlon titanium tibial component size 4 beaded, a triathlon X3 tibial bearing CS insert size 4 X 11 mm and a beaded triathlon titanium asymmetric patella size 32 x 10 mm Specimens removed/disposition: Bone, disposed of Pathology: None Surgeon: Angi Wong MD Resident Programs Assistant: Ghada Field, nurse practitioner who services were required for retraction, exposure, closure, and completion of the surgical procedure Anesthesia: Spinal (Spinal with MAC) Estimated blood loss (mL): 240 Tourniquet time (min): 0 (Not utilized) IV fluids (mL): 1,400 Urine output (mL): 550 Complications: None Findings: Severe degenerative osteoarthritis with large osteophytes, slight hyperextension, and denudement of cartilage. Condition: stable Disposition: PACU (Then to floor for postoperative rehabilitation and pain management) Brief History: This 54-year-old woman presented with complaints of right knee pain. Previously, she underwent left total knee arthroplasty in January 2022. She has had increasing symptoms and decreasing function in the right knee secondary to degenerative osteoarthritic changes. After conservative measures failed, the patient wished to proceed with operative intervention. She was scheduled for total knee arthroplasty with Konrad guidance. Initially, her BMI was high, but this is now within limits for the surgical procedure. Risks and complications were discussed in the office. Consents were signed and questions were answered. Procedure: The patient was brought to the operating theater, and after undergoing adequate spinal anesthesia with MAC, ASA 2, the right lower extremity was prepped with Dura-Prep and draped in usual fashion following placement of a tourniquet high on the leg. The leg was then draped free. Tourniquet was placed on the leg but was not elevated throughout the surgical procedure. Following exposure of the site of surgery, a surgical pause was performed. At the time of the surgical pause, we confirmed the site and side of surgery. Additionally, we confirmed the appropriate and timely administration of preoperative antibiotics, Ancef 2 g and Transexemic acid 1 g.? The availability of equipment was confirmed, and the patient's identity was verbalized as well.? An additional transexemic acid 1 g will be given to the patient's on the floor. Following the surgical pause, an incision was made centering over the patella continuing proximally and distally as necessary to allow access to the knee joint. Dissection continued through skin and soft tissues using a scalpel. Hemostasis was obtained using electrocautery. The skin incision was followed by a median parapatellar arthrotomy. The leg was extended and the patella was able to be displaced laterally. Appropriate arrays and markers were placed in appropriate position for use of the [facility]. Preoperative planning had been accomplished and was discussed in detail with the [facility] nutrition representative. Intraoperative mapping of the femur and tibia was accomplished after the arrays were placed. Once we had accomplished the [facility] mapping, we began the appropriate resections for placement of the prosthesis. The plan was for a cruciate retaining right total knee arthroplasty. Once appropriate mapping had been accomplished retraction was established using manual retraction by the [facility] leg positioner and retractors. The knee was evaluated. There was eburnation particularly of the medial femoral condyle.? There were large osteophytes circumferentially about the trochlear groove as well as the patella and medial tibial plateau.? After balancing the knee within the Konrad program, the appropriate bone resection was accomplished. Initial resection was accomplished on the tibia followed by appropriate resections on the femur. We had performed a medial release at the beginning of the procedure to allow for placement of the array. Proximal tibia was evaluated and it was felt that appropriate size for the tibia was a size 4 which matched the femoral component. A trial reduction was accomplished after osteophytes had been removed, the medial and lateral meniscus were excised, and bone cuts had been accomplished as above. We had removed the anterior cruciate ligament at the beginning of the case and preserved the posterior cruciate ligament. Trial reduction was accomplished with a size 4 femoral cruciate retaining component and a size 4 CS tibial bearing insert which was 9 mm in thickness. Due to the hyperextension, we increased the trial to a 9 mm thickness. With this, we had excellent stability, full extension, and appropriate alignment. From experience, we elected to increase the size of the insert to an 11 mm thick insert. Trial components were removed after the femur had been drilled. Prior to removal of the tibial tray which had been pinned in position with appropriate rotation as determined by the Konrad plan, we broached the tibia. Subsequently, the 4 drill holes were made for the prosthetic component. All trial components had been removed, and the wound was irrigated. Plans were made for insertion of the prosthetic components. Prior to this, the patella was manually prepared. After resection of the articular surface with the jigging system, it was measured and measured a 29 mm patella. We resected approximately 10 mm of patella, and patellar height was restored with the patellar component. Once again, the wound was irrigated. The Tritanium tibia was impacted into position.? The beaded femur was then impacted into position in a cementless fashion. The CS tibial insert was placed prior to placement of the femoral component. The patella was pressed into position with a patellar clamp.? Exparel was injected about the components deep and superficially. The knee was then copiously irrigated with betadine and saline and suctioned dry. Attention was then directed to closure. Closure was accomplished with 0 Vicryl in the fascial tissues followed by a running #1 strata fix 1 from proximal to distal and 1 from distal to proximal.? This was followed by Surgiflo and vancomycin powder. Subcutaneous tissues were closed with 2-0 Monocryl strata fix, and the skin was closed in a running subcuticular fashion with 3-0 Monocryl strata fix.? A sterile dressing was then placed consisting of Dermabond Prineo, OpSite, sterile soft roll including over the foot, and an Kulwant wrap. The patient was returned the Recovery Room in a satisfactory condition. X-rays were obtained and reviewed there.? The patient will be discharged to the floor for postoperative rehabilitation and pain management. Related Problem List Diagnoses (1) Primary osteoarthritis of right knee:
--- NOTE | 2024-04-09 12:15 | ANE.PACU2 ---
Inpatient post-anesthesia follow up: Airway intact: Yes Vital signs: Temperature 97.8 F Pulse Rate 78 Respiratory Rate 18 Blood Pressure 117/68 Pulse Oximetry 97 Oxygen Delivery Me thod Room Air Oxygen Flow Rate 8 Fraction of Inspir ed Oxygen Hydration adequate: Yes Nausea and vomiting: No Pain level: 1 Mental status: Baseline
[2024-04-09] MEDS: chlorhexidine gluconate 0.12% Btl 473 mL 30 ML MUCOUS MEM ×3 (13:16→21:01)
[2024-04-09] MEDS: CELEcoxib 200 mg Capsule PO ×2 (13:17→23:49)
[2024-04-09] MEDS: mupirocin oint 22 gm 1 APPLIC NASAL (17:10)
[2024-04-09] MEDS: iron polysaccharide complex 150 mg Capsule PO (17:11)
[2024-04-09] MEDS: calcium carbonate 500 mg Chew Tablet 1000 MG PO (17:11)
[2024-04-09] MEDS: sennosides-docusate Tablet 2 TAB PO (17:11)
[2024-04-09] MEDS: oxyCODONE 5 mg IR Tab/Cap PO (18:34)
[2024-04-10 04:13] VITALS: BP 117/68; PULSE 78; RESP 18; TEMP 36.6; O2SAT 96
[2024-04-10] MEDS: acetaminophen 1,000 MG/100 ML PIGGYBACK 400 MG IV (04:32)
[2024-04-10] MEDS: ceFAZolin 2,000 mg SDV 2000 MG IVP (04:32)
[2024-04-10] MEDS: buPROPion XL (24 HR) 150 mg Tablet PO (04:36)
[2024-04-10 04:40] VITALS: RESP 18; O2SAT 97
[2024-04-10] MEDS: oxyCODONE 5 mg IR Tab/Cap PO ×3 (04:40→15:35)
[2024-04-10 06:12] LABS: Basophils # 0.1 10^3/uL (0.0-0.1); Basophils % 0.5 %; Eosinophils # 0.1 10^3/uL (0.0-0.8); Eosinophils % 0.6 %; Hematocrit 29.6 % (36-47); Lymphocytes # 2.2 10^3/uL (0.8-4.8); Lymphocytes % 20.1 %; Mean Corpuscular HGB Conc 32.8 g/dL (30-55); Mean Corpuscular Hemoglobin 29.3 pg (27-33); Mean Corpuscular Volume 89.4 fl (85-98); Mean Platelet Volume 11.4 fL (7.4-10.4); Monocytes # 1.1 10^3/uL (0.2-0.9); Monocytes % 9.7 %; Neutrophils # 7.49 10^3/uL (1.8-7.7); Neutrophils % 68.6 %; Nucleated Red Blood Cells % 0 %; Platelet Count 241 10^3/cmm (157-399); Red Blood Count 3.31 10^6/uL (3.85-5.65); White Blood Count 10.92 10^3/uL (3.29-11.43)
[2024-04-10 08:14] VITALS: BP 126/88; PULSE 67; RESP 17; TEMP 36.7; O2SAT 98
[2024-04-10] MEDS: sodium chloride 0.9% 1,000 ML 75 ML IV (08:42)
[2024-04-10] MEDS: aspirin 325 mg EC Tablet PO (08:44)
[2024-04-10] MEDS: iron polysaccharide complex 150 mg Capsule PO (08:44)
[2024-04-10] MEDS: multivitamin therapeutic Tablet 1 TAB PO (08:44)
[2024-04-10] MEDS: docusate sodium 100 mg Capsule PO (08:44)
[2024-04-10] MEDS: sennosides-docusate Tablet 2 TAB PO (08:44)
[2024-04-10] MEDS: mupirocin oint 22 gm 1 APPLIC NASAL (08:46)
[2024-04-10] MEDS: cholecalciferol (vitamin D3) 1,000 unit Tablet 1000 UNIT PO (08:46)
[2024-04-10] MEDS: calcium carbonate 500 mg Chew Tablet 1000 MG PO (08:46)
[2024-04-10] MEDS: chlorhexidine gluconate 0.12% Btl 473 mL 30 ML MUCOUS MEM ×2 (08:47→13:21)
[2024-04-10 11:02] VITALS: RESP 18
[2024-04-10] MEDS: CELEcoxib 200 mg Capsule PO (13:20)
[2024-04-10 15:35] VITALS: RESP 18
--- NOTE | 2024-04-10 16:05 | PM.DCS ---
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 cement: Status: Acute Permanent problem details: Date of procedure: April 09, 2024 Diagnosis: Severe degenerative osteoarthritis right knee with slight hyperextension Procedure done: Right total knee arthroplasty with Konrad guidance Implants: The Panopto total knee system with a size 4 triathlon beaded cruciate retaining femur right, a triathlon titanium tibial component size 4 beaded, a triathlon X3 tibial bearing CS insert size 4 X 11 mm and a beaded triathlon titanium asymmetric patella size 32 x 10 mm Reason for Visit Reason for Visit: M17.11 Brief History: This 54-year-old woman presented with complaints of right knee pain. Previously, she underwent left total knee arthroplasty in January 2022. She has had increasing symptoms and decreasing function in the right knee secondary to degenerative osteoarthritic changes. After conservative measures failed, the patient wished to proceed with operative intervention. She was scheduled for total knee arthroplasty with Konrad guidance. Initially, her BMI was high, but this is now within limits for the surgical procedure. Risks and complications were discussed in the office. Consents were signed and questions were answered. Hospital Course Hospital Course Patient was admitted under observation status following same-day surgery for total knee arthroplasty. The procedure was well-tolerated. On the first postoperative day, she was doing well. Initially, she had some nausea and hypotension, but this resolved. She was able to work with physical therapy and she was deemed safe for discharge to home. She will be participating with outpatient therapy, and she will go to the clinic for this. Otherwise, she is advised that there is no evidence of DVT. She may shower, but maintain the dressing intact. If it lifts up and leaks, she will remove it. She will follow-up with me in the office as scheduled and is advised also to be weightbearing as tolerated. Physical Exam Const: COMMON NORMALS: no acute distress, average body habitus, patient oriented x3 and alert GENERAL APPEARANCE: cooperative and comfortable ORIENTATION/CONSCIOUSNESS: Yes awake HENMT: COMMON NORMALS: normocephalic and atraumatic HEAD & SCALP: normocephalic and atraumatic Eye: GENERAL EYE: appearance normal, both eyes and all related structures Chest: COMMONS NORMALS: normal inspection of the chest Resp: COMMON NORMALS: normal respiratory effort EFFORT & INSPECTION: Yes able to speak in complete sentences and Yes symmetric chest movement Extremity: RIGHT LOWER EXTREMITY: Yes knee joint (Dressing is removed. It is dry without drainage.) Right knee: Yes inspection (No significant swelling or ecchymosis.), Yes ROM (Able to straight leg raise.) and Yes neurovascular exam (Intact distally) Neuro: COMMON NORMALS: patient oriented x3 SENSORIUM/ORIENTATION: Yes alert Psych: COMMON NORMALS: mental status grossly normal APPEARANCE: Yes grossly normal ATTITUDE: Yes calm and Yes engaged ATTENTION/CONCENTRATION: Yes attention grossly intact Skin: COMMON NORMALS: no rashes or lesions noted GENERAL SKIN EXAM: no rashes or lesions noted Urinary Catheter Management: Ellis: Cath Placed During This Visit: yes Reason for Continuing Indwelling Catheter: Perioperative Use in Selected Surgeries Urinary Catheter Date of Insertion: 04/09/24 Urinary Catheter Time of Insertion: 08:19 Discharge Data Studies Completed and Pending Completed Studies During Hospitalization Category Date Time Status XR knee RT 1-2V [id number] Routine Exams 04/09/24 10:47 Completed Radiology Impressions Knee X-Ray 04/09/24 10:47 IMPRESSION: Intact postoperative knee prosthesis Laboratory Results WBC 10.92 10^3/uL (3.29-11.43) 04/10/24 05:25 RBC 3.31 10^6/uL (3.85-5.65) L 04/10/24 05:25 Hgb 9.70 g/dL (11.27-16.99) L 04/10/24 05:25 Hct 29.6 % (36-47) L 04/10/24 05:25 MCV 89.4 fl (85-98) 04/10/24 05:25 MCH 29.3 pg (27-33) 04/10/24 05:25 MCHC 32.8 g/dL (30-55) 04/10/24 05:25 RDW 13.0 % (12.1-15.1) 04/10/24 05:25 Plt Count 241 10^3/cmm (157-399) 04/10/24 05:25 MPV 11.4 fL (7.4-10.4) H 04/10/24 05:25 Neut % (Auto) 68.6 % 04/10/24 05:25 Lymph % (Auto) 20.1 % 04/10/24 05:25 [place] % (Auto) 9.7 % 04/10/24 05:25 Eos % (Auto) 0.6 % 04/10/24 05:25 Baso % (Auto) 0.5 % 04/10/24 05:25 Neut # (Auto) 7.49 10^3/uL (1.8-7.7) 04/10/24 05:25 Lymph # (Auto) 2.2 10^3/uL (0.8-4.8) 04/10/24 05:25 [place]ants # (Auto) 1.1 10^3/uL (0.2-0.9) H 04/10/24 05:25 Eos # (Auto) 0.1 10^3/uL (0.0-0.8) 04/10/24 05:25 Baso # (Auto) 0.1 10^3/uL (0.0-0.1) 04/10/24 05:25 Nucleated RBC % (auto) 0 % 04/10/24 05:25 Nucleated RBCs # 0.0 /100WBC 04/10/24 05:25 Vitals Last Vital Signs Temp 98.0 F 04/10/24 08:14 Pulse 67 04/10/24 08:14 Resp 18 04/10/24 15:35 BP 126/88 04/10/24 08:14 Pulse Ox 98 04/10/24 08:14 O2 Del Method Room Air 04/10/24 08:14 O2 Flow Rate 8 04/09/24 10:59 Discharge Plan Discharge Patient Disposition: Home Condition: Stable Prescriptions: New acetaminophen 500 mg Tablet 1,000 mg PO Q8H 15 Days Qty: 90 0RF celecoxib 200 mg Capsule 200 mg PO 1XD 30 Days Qty: 30 0RF aspirin 325 mg Tablet,Delayed Release (Dr/Ec) 325 mg PO DAILY 30 Days Qty: 30 0RF oxycodone 5 mg Tablet 5 - 10 mg PO Q4H PRN (Reason: Moderate To Severe Pain) 7 Days Qty: 30 0RF Continued lisinopril-hydrochlorothiazide 10-12.5 mg tablet 1 tab PO DAILY bupropion HCl [Wellbutrin XL] 150 mg tablet extended release 24 hr 150 mg PO QAM calcium carbonate-vitamin D2 600 mg calcium- 200 unit tablet 1 tab PO DAILY multivitamin Tablet 1 tab PO DAILY docusate sodium [Colace] 100 mg capsule 100 mg PO DAILY turmeric 400 mg capsule 400 mg PO .QD progesterone micronized [Prometrium] 100 mg capsule 200 mg PO BEDTIME Qty: 180 3RF Rx Instructions: take 1 cap at hs for 1 week then increase to 2 caps at hs phentermine 37.5 mg tablet 37.5 mg PO DAILY estradiol 0.05 mg/24 hr patch semiweekly 1 patch transdermal .twice weekly Qty: 8 0RF Held ibuprofen 800 mg tablet 800 mg PO TID PRN (Reason: inflammation and pain) Qty: 90 2RF Hold Instructions: Resume on 05/10/24. After completion of Celebrex Discharge Orders: Discharge Order (Routine); Ordered 04/10/24 Ordered By: Agni Wong Other Ambulatory Orders: Physical Therapy Eval and Treat Outpatient (Order) Timeframe: 3 Days Facility[facility] - Location: Physical Therapy [place] Ordered By: Angi Wong Referrals: Susanna Callaway APN [Referring] - 04/16/24 11:00 am Angi Wong MD [Physician] - 04/27/24 8:45 am Discharge Diet: Advance as tolerated and Usual diet Discharge Activity: Increase activity as tolerated, Limit activity as instructed, Use walker/crutches as instructed and As per PT/OT instructions Patient Instructions: Aspirin (By mouth), Oxycodone, Rapid Release (By mouth), Celecoxib (By mouth), Acute Wound Care (DC), Total Knee Replacement (GEN), Opioid Safety, Post Anesthesia Care Activity Restrictions/Additional Instructions: You may weight-bear as tolerated. Ice to right knee. Range of motion, strengthening, and ambulation per physical therapy. You may remove your dressing if it lifts up off the skin or if it begins to leak. Leave the lower dressing in place. Discharge Attestations Time Spent in Discharge Care*: greater than 30 min Specific Discharge Activities: educating patient, documenting/other paperwork and evaluating patient/reviewing data Quality Metrics Clinical Quality Measures [ No reported AMI, CVA or VTE this stay] Coding Level of Care Code Acute Code for Chg Fwd Diagnoses Primary osteoarthritis of right knee M17.11 Status post total right knee replacement not using cement Z96.651
== END 2024-04-10 16:15 | disposition home or self-care (01) ==
LOC: MEDSURG 11:10
PROVIDERS: Admitting Provider Specialist; PCP Family Medicine; Visit Provider Specialist
PROC: 8E0Y0CZ Robotic Assisted Procedure of Lower Extremity, Open Approach (ICD-10-PCS; CPT 27447; principal; 2024-04-09 08:00)
DX: M17.11 Unilateral primary osteoarthritis, right knee (principal); M25.761 Osteophyte, right knee; I10 Essential (primary) hypertension
CPT/HCPCS: 27447; 20985; 36415; 51702; 73560; 85025; 97110; 97116; 97161; 97165; 97530; A4216; C1713; C1776; C9290; G0378; J0131; J0690; J1100; J2250; J2371; J2704; J2795; J3010; J3370; J3490; J7030

== ENCOUNTER → 2024-04-27 08:49 | Outpatient (BNVA) | payer OTHER, SELFPAY | PROVIDERS: PCP Family Medicine; Visit Provider Specialist | DX: Z98.890 Other specified postprocedural states (principal); Z96.651 Presence of right artificial knee joint; M17.11 Unilateral primary osteoarthritis, right knee | CPT/HCPCS: 73560; 73565 ==

== ENCOUNTER → 2024-05-25 10:22 | Outpatient (BNVA) | payer OTHER, SELFPAY | PROVIDERS: PCP Family Medicine; Visit Provider Specialist | DX: Z96.651 Presence of right artificial knee joint (principal); M17.11 Unilateral primary osteoarthritis, right knee | CPT/HCPCS: 73560; 73565 ==

== ENCOUNTER → 2024-07-22 10:13 | Outpatient (BNVA) | payer OTHER, SELFPAY | PROVIDERS: PCP Family Medicine; Visit Provider Specialist | DX: Z96.651 Presence of right artificial knee joint (principal) | CPT/HCPCS: 73560; 73565 ==

== ENCOUNTER → 2024-11-23 11:14 | Outpatient (BNVA) | payer OTHER, SELFPAY | PROVIDERS: PCP Family Medicine; Visit Provider Specialist | DX: Z96.651 Presence of right artificial knee joint (principal); M17.12 Unilateral primary osteoarthritis, left knee | CPT/HCPCS: 73560; 73565 ==

== ENCOUNTER 2024-12-09 15:00 | Outpatient (RCR) | payer OTHER, SELFPAY | END 2025-01-05 23:59 | disposition home or self-care (01) | LOC: SPT 15:00 | PROVIDERS: Visit Provider Specialist | DX: M17.12 Unilateral primary osteoarthritis, left knee (principal) | CPT/HCPCS: 97110; 97161 ==

== ENCOUNTER 2025-01-06 05:00 | Outpatient (RCR) | payer OTHER, SELFPAY | END 2025-02-05 23:59 | disposition home or self-care (01) | LOC: SPT 05:00 | PROVIDERS: Visit Provider Specialist | DX: M17.12 Unilateral primary osteoarthritis, left knee (principal) | CPT/HCPCS: 97110 ==

== ENCOUNTER → 2025-02-03 15:57 | Outpatient (BNVA) | payer OTHER, SELFPAY | PROVIDERS: Visit Provider Nurse Practitioner Women's Health | DX: Z78.0 Asymptomatic menopausal state (principal); R53.83 Other fatigue; Z79.890 Hormone replacement therapy | CPT/HCPCS: 82306; 82670 ==

== ENCOUNTER 2025-02-17 07:33 | Outpatient (RCR) | payer OTHER, SELFPAY ==
--- NOTE | 2025-02-17 11:42 | XR_ITS ---
WS: [id number] DEXA (DUAL ENERGY X-RAY ABSORPTIOMETRY) Bone mineral density was performed using a Lootsie machine. HISTORY: Z78.0 - Asymptomatic menopausal state COMPARISON: None available. Lumbar spine BMD (L1-L4): 1.393 g/cm2 T score: 1.8 Z score: 1.5 Total hip BMD: Left: 1.280 g/cm2. T score: 2.2 Z score: 2.0 Right: 1.217 g/cm2. T score: 1.7 Z score: 1.5 10 year probability of a major osteoporotic fracture is 6%. XR/XR DEXA axial skeleton* 79209 IMPRESSION: NORMAL BONE MINERAL DENSITY based upon the WHO classification for females.
== END 2025-03-07 23:59 | disposition home or self-care (01) ==
LOC: SPT 07:33
PROVIDERS: PCP Nurse Practitioner Women's Health; Visit Provider Specialist
DX: M17.12 Unilateral primary osteoarthritis, left knee (principal)
CPT/HCPCS: 77080; 97110; 97164

== ENCOUNTER 2025-03-02 07:36 | Outpatient (CLI) | payer OTHER, SELFPAY ==
--- NOTE | 2025-03-02 08:40 | MM_ITS ---
WS: [id number] BILATERAL SCREENING DIGITAL TOMOSYNTHESIS MAMMOGRAM WITH CAD HISTORY: Z12.31 - Encounter for screening mammogram for malignant ... COMPARISON: 06/15/2022, 06/14/2022, 11/07/2020, 11/02/2019, 10/29/2018, 08/08/2017 Bilateral CC and MLO views with tomosynthesis and synthetic mammography submitted. Computer aided detection analyzed. Breast composition: There are scattered areas of fibroglandular density. No suspicious masses, microcalcifications or architectural distortion. Scattered asymmetries and calcifications within each breast by the greater within the LEFT breast. Similar appearance as compared to 08/08/2017. Some of the calcifications have increased in size and number. No suspicious grouping of pleomorphic calcifications. MM/MM scr tomosynthesis [id number] IMPRESSION: BI-RADS: 2 - Benign. FOLLOW UP: 1 Year Follow-up
== END 2025-03-02 07:37 | disposition home or self-care (01) ==
LOC: RAD 07:36
PROVIDERS: PCP Nurse Practitioner Women's Health; Visit Provider Nurse Practitioner Women's Health
DX: Z12.31 Encounter for screening mammogram for malignant neoplasm of breast (principal); R92.323 Mammographic fibroglandular density, bilateral breasts; N64.89 Other specified disorders of breast; R92.1 Mammographic calcification found on diagnostic imaging of breast
CPT/HCPCS: 77063; 77067

== ENCOUNTER 2025-03-08 05:00 | Outpatient (RCR) | payer OTHER, SELFPAY | END 2025-04-07 23:59 | disposition home or self-care (01) | LOC: SPT 05:00 | PROVIDERS: PCP Nurse Practitioner Women's Health; Visit Provider Specialist | DX: Z96.651 Presence of right artificial knee joint (principal); Z96.652 Presence of left artificial knee joint | CPT/HCPCS: 97110; 97164 ==